=== PATIENT | male | born 1960 ===

== ENCOUNTER 2018-02-24 14:14 | Inpatient (IN) | payer MEDICAID ==
[2018-02-24] MEDS ORDERED: Ketoconazole 2% Crm 30 GM Tube TOP PRN (15:56)
[2018-02-24] MEDS ORDERED: Albuterol 8 GM Inhaler INH PRN (15:56)
[2018-02-24] MEDS ORDERED: Sodium Chloride 0.9% 10 ML Syringe FLUSH PRN (16:31)
--- NOTE | 2018-02-24 16:51 | PCM.HP ---
H&P History of Present Illness - General Date of Service: 02/24/18 Admit Problem/Dx: Admission Diagnosis/Problem Admission Diagnosis/Problem Osteomyelitis Source of Information: Patient, Old Records History Limitations: Reports: No Limitations - History of Present Illness Initial Comments - Free Text/Narative: Admitting today to [facility] for long-term IV antibiotics, as well as PT-OT. Complex history involving R hip, involving sepsis of the joint, hip replacement with revisions. Onset of Symptoms: Reports: Unknown/Unsure Duration of Symptoms: Reports: Other (approximately 1.5 years) Location: Reports: Lower Extremity, Right Quality: Reports: Same as Previous Episode (pain in right hip) Severity: Moderate (to moderately severe) Improves with: Reports: Medication, Rest Worsens with: Reports: Movement Context: Reports: Other (infection (sepsis, osteomyelitis)) Associated Symptoms: Reports: Weakness Right Hip Pain Score (Numeric/FACES): 10 - Related Data Allergies/Adverse Reactions: Allergies Allergy/AdvReac Type Severity Reaction Status Date / Time acetaminophen [From Tylenol] Allergy Cannot Verified 02/24/18 16:55 Remember Home Medications: Home Meds Albuterol [Ventolin HFA] 2 inhalation PO Q4HR PRN 02/24/18 [History] Aspirin 81 mg PO BID 02/24/18 [History] Calcium Carb/Mag Ox/Zinc Gluc [Fakylzi-Sumjduyrn-Dnmi] 1 tab PO DAILY 02/24/18 [ History] Cholecalciferol (Vitamin D3) [Vitamin D3] 1 tab PO DAILY 02/24/18 [History] Cyanocobalamin (Vitamin B-12) [Vitamin B-12] 1 tab PO DAILY 02/24/18 [History] Diazepam [Valium] 5 mg PO Q6H PRN 02/24/18 [History] Ertapenem [INVanz] 1 gm IVPUSH DAILY 02/24/18 [History] Folic Acid 1 mg PO DAILY 02/24/18 [History] Gabapentin [Neurontin] 200 mg PO TID 02/24/18 [History] Heparin Sodium,Porcine/PF [Heparin Lock Flush 100 Unit/ml] 3 ml FLUSH ASDIRECTED 02/24/18 [History] Heparin Sodium,Porcine/PF [Heparin Lock Flush 100 Unit/ml] 3 ml FLUSH ASDIRECTED PRN 02/24/18 [History] Ketoconazole [Nizoral 2% Crm] 1 applic TOP BID PRN 02/24/18 [History] Lactulose [Cephulac] 30 ml PO TID 02/24/18 [History] Multivitamin [Multi-Vitamin Daily] 1 tab PO DAILY 02/24/18 [History] Rifampin 300 mg PO BID 02/24/18 [History] Sennosides/Docusate Sodium [Senna-S] 2 tab PO BID 02/24/18 [History] Sertraline [Zoloft] 1 tab PO DAILY 02/24/18 [History] Sodium Chloride 0.9% [Saline Flush] 10 ml FLUSH ASDIRECTED 02/24/18 [History] Sodium Chloride 0.9% [Saline Flush] 10 ml FLUSH ASDIRECTED PRN 02/24/18 [History ] Tamsulosin [Flomax] 1 cap PO BEDTIME 02/24/18 [History] Thiamine [Vitamin B-1] 1 tab PO DAILY 02/24/18 [History] Triamcinolone Acetonide [Triamcinolone Acetonide 0.1% Crm] 1 applic TOP [id number] 02/24/18 [History] Vit A & D3 In Cod Liver Oil [Cod Liver Oil Softgel] 1 cap PO DAILY 02/24/18 [ History] amLODIPine [Norvasc] 2.5 mg PO DAILY 02/24/18 [History] oxyCODONE 10 mg PO Q4HR PRN 02/24/18 [History] Past Medical History HEENT History: Reports: Impaired Vision Cardiovascular History: Reports: Hypertension Respiratory History: Reports: Pneumonia, Recurrent Gastrointestinal History: Reports: Chronic Constipation Genitourinary History: Reports: Prostate Disorder Musculoskeletal History: Reports: Arthritis, Back Pain, Chronic, Fracture, Gout , Neck Pain, Chronic Hematologic History: Reports: Blood Transfusion(s) Dermatologic History: Reports: Eczema - Infectious Disease History Infectious Disease History: Reports: Chicken Pox, Hepatitis C, Measles, Mumps - Past Surgical History Head Surgeries/Procedures: Reports: None HEENT Surgical History: Reports: None Cardiovascular Surgical History: Reports: None Respiratory Surgical History: Reports: None GI Surgical History: Reports: None Male Surgical History: Reports: Circumcision Musculoskeletal Surgical History: Reports: Hip Replacement Dermatological Surgical History: Reports: None Social & Family History - Family History OBGYN: Reports: Dermatologic: Reports: Eczema Other Dermatologic Family History: Mother Oncologic: Reports: Breast, Lung Other Oncologic Family History: Mother - Tobacco Use Smoking Status *Q: Former Smoker Used Tobacco, but Quit: Yes Month/Year Tobacco Last Used: 08/2016 Second Hand Smoke Exposure: No - Caffeine Use Caffeine Use: Reports: Soda - Alcohol Use Days Per Week of Alcohol Use: 0 - Recreational Drug Use Recreational Drug Use: No H&P Review of Systems - Review of Systems: Review Of Systems: See Below General: Reports: Fatigue HEENT: Reports: No Symptoms Pulmonary: Reports: No Symptoms Cardiovascular: Reports: No Symptoms Gastrointestinal: Reports: No Symptoms Genitourinary: Reports: No Symptoms Musculoskeletal: Reports: Leg Pain (R hip) Skin: Reports: No Symptoms Psychiatric: Reports: No Symptoms Neurological: Reports: No Symptoms Hematologic/Lymphatic: Reports: No Symptoms Immunologic: Reports: No Symptoms Exam - Exam Exam: See Below - Vital Signs Vital Signs: Last Vital Signs Temp 98.1 F 02/24/18 15:13 Pulse 91 02/24/18 15:13 Resp 20 02/24/18 15:13 BP 140/77 02/24/18 15:13 Pulse Ox 95 02/24/18 15:13 Weight: 162 lb 3.2 oz - Exam General: Alert, Oriented, 4 HEENT: EOMI, Hearing Intact Neck: Supple, Trachea Midline, 2 Lungs: Clear to Auscultation, Normal Respiratory Effort Cardiovascular: Regular Rate, Regular Rhythm GI/Abdominal Exam: Normal Bowel Sounds, Soft, Non-Tender (Male) Exam: Deferred Rectal (Males) Exam: Deferred Back Exam: Normal Inspection Extremities: No Pedal Edema, Other (PICC line R antecubital) Skin: Warm, Dry, Wound (R hip, dressing intact) Neurological: Cranial Nerves Intact Neuro Extensive - Mental Status: Alert, Oriented x3, Normal Mood/Affect, Normal Cognition, Memory Intact Psychiatric: Alert, Normal Affect, Normal Mood - Problem List (1) Osteomyelitis hip SNOMED Code(s): 3374774 ICD Code: M86.9 - OSTEOMYELITIS, UNSPECIFIED Status: Acute Priority: High Current Visit: Yes (2) History of arthroplasty of right hip SNOMED Code(s): 929348941 ICD Code: Z96.641 - PRESENCE OF RIGHT ARTIFICIAL HIP JOINT Status: Chronic Priority: Medium Current Visit: Yes (3) Hypertension SNOMED Code(s): 09645978 ICD Code: I10 - ESSENTIAL (PRIMARY) HYPERTENSION Status: Chronic Priority : Medium Current Visit: Yes Qualifiers: Hypertension type: essential hypertension Qualified Code(s): I10 - Essential (primary) hypertension (4) Hepatitis C, chronic SNOMED Code(s): 522207009 ICD Code: B18.2 - CHRONIC VIRAL HEPATITIS C Status: Chronic Priority: Medium Current Visit: Yes Qualifiers: Hepatic coma status: without hepatic coma Qualified Code(s): B18.2 - Chronic viral hepatitis C (5) Depression SNOMED Code(s): 23704010 ICD Code: F32.9 - MAJOR DEPRESSIVE DISORDER, SINGLE EPISODE, UNSPECIFIED Status: Chronic Priority: Medium Current Visit: Yes Qualifiers: Depression Type: major depressive disorder Major depression recurrence: recurrent Major depression episode severity: moderate (6) BPH (benign prostatic hyperplasia) SNOMED Code(s): 206004082 ICD Code: N40.0 - BENIGN PROSTATIC HYPERPLASIA WITHOUT LOWER URINRY TRACT SYMP Status: Chronic Priority: Medium Current Visit: Yes Qualifiers: Lower urinary tract symptom presence: symptoms absent Qualified Code(s): N40.0 - Benign prostatic hyperplasia without lower urinary tract symptoms (7) Drug induced constipation SNOMED Code(s): 99906498 ICD Code: K59.03 - DRUG INDUCED CONSTIPATION Status: Chronic Priority: Medium Current Visit: Yes Problem Details: Secondary to narcotics Problem List Initiated/Reviewed/Updated: Yes Orders Last 24hrs: Active Orders 24 hr Category Date Time Status Patient Status [ADT] Routine ADT 02/24/18 16:32 Ordered Ambulate [RC] ASDIRECTED Care 02/24/18 16:31 Ordered Height and Weight [RC] PER UNIT ROUTINE Care 02/24/18 16:37 Ordered Intake and Output [RC] PRN Care 02/24/18 16:31 Ordered May Shower [RC] ASDIRECTED Care 02/24/18 16:31 Ordered Oxygen Therapy [RC] PRN Care 02/24/18 16:32 Ordered Up With Assistance [RC] ASDIRECTED Care 02/24/18 16:31 Ordered VTE/DVT Education [RC] PER UNIT ROUTINE Care 02/24/18 16:32 Ordered Vital Signs [RC] PER UNIT ROUTINE Care 02/24/18 16:32 Ordered Consult to Case Management [CONS] Routine Cons 02/24/18 16:31 Ordered OT Evaluation and Treatment [CONS] Routine Cons 02/24/18 16:31 Ordered PT Evaluation and Treatment [CONS] Routine Cons 02/24/18 16:31 Ordered Regular Diet [DIET] Diet 02/24/18 Dinner Ordered Albuterol [Ventolin HFA] Med 02/24/18 15:56 Ordered 2 inhalation INH Q4HR PRN Aspirin Med 02/24/18 18:00 Ordered 81 mg PO BID Calcium Carb/Mag Ox/Zinc Gluc [Fjfuxts-Frbfigagc-Sijq] Med 02/25/18 08:00 Ordered 1 tab PO DAILY Cholecalciferol (Vitamin D3) [Vitamin D3] Med 02/25/18 08:00 Ordered 1 tab PO DAILY Cyanocobalamin (Vitamin B12) [Vitamin B12] Med 02/25/18 08:00 Ordered 1 tab PO DAILY Diazepam [Valium] Med 02/24/18 15:56 Ordered 5 mg PO Q6H PRN Docusate Sodium/Sennosides [Senna Plus] Med 02/24/18 18:00 Ordered 2 tab PO BID Ertapenem [INVanz] Med 02/24/18 16:00 Ordered 1 gm IVPUSH DAILY Folic Acid Med 02/25/18 08:00 Ordered 1 mg PO DAILY Gabapentin [Neurontin] Med 02/24/18 18:00 Ordered 200 mg PO TID Heparin Sodium,Porcine/PF [Heparin Lock Flush 100 Unit/ Med 02/24/18 16:00 Ordered ml] 3 ml FLUSH ASDIRECTED Heparin Sodium,Porcine/PF [Heparin Lock Flush 100 Unit/ Med 02/24/18 15:56 Ordered ml] 3 ml FLUSH ASDIRECTED PRN Ketoconazole [Nizoral 2% Crm] Med 02/24/18 15:56 Ordered 1 applic TOP BID PRN Lactulose [Cephulac] Med 02/24/18 18:00 Ordered 20 gm PO TID Multivitamins [Tab-A-Alondra] Med 02/25/18 08:00 Ordered 1 tab PO DAILY Rifampin [Rifampin] Med 02/24/18 18:00 Ordered 300 mg PO BID Sertraline [Zoloft] Med 02/25/18 08:00 Ordered 1 tab PO DAILY Sodium Chloride 0.9% [Saline Flush] Med 02/24/18 16:00 Ordered 10 ml FLUSH ASDIRECTED Sodium Chloride 0.9% [Saline Flush] Med 02/24/18 15:56 Ordered 10 ml FLUSH ASDIRECTED PRN Sodium Chloride 0.9% [Saline Flush] Med 02/24/18 16:31 Ordered 10 ml FLUSH ASDIRECTED PRN Tamsulosin [Flomax] Med 02/24/18 20:00 Ordered 1 cap PO BEDTIME Thiamine [Vitamin B-1] Med 02/25/18 08:00 Ordered 1 tab PO DAILY amLODIPine [Norvasc] Med 02/25/18 08:00 Ordered 2.5 mg PO DAILY oxyCODONE Med 02/24/18 15:56 Ordered 10 mg PO Q4HR PRN Saline Lock Insert [OM.PC] Routine Oth 02/24/18 16:31 Ordered Resuscitation Status Routine Resus Stat 02/24/18 16:31 Ordered Medication Orders Albuterol (Ventolin Hfa) 0 gm INH Q4HR PRN PRN Reason: SHORTNESS OF BREATH Aspirin (Aspirin) 81 mg PO BID [facility] Cholecalciferol (Vitamin D3) 400 units PO DAILY [facility] Cyanocobalamin (Vitamin B12) 250 mcg PO DAILY [facility] Diazepam (Valium.) 5 mg PO Q6H PRN PRN Reason: MUSCLE SPASMS/ANXIETY Ertapenem (Invanz) 1 gm IVPUSH DAILY@1400 [facility] Folic Acid (Folic Acid) 1 mg PO DAILY [facility] Gabapentin (Neurontin) 200 mg PO TID [facility] Heparin Sodium (Porcine) (Heparin Lock Flush 100 Units/Ml) 300 units FLUSH ASDIRECTED PRN PRN Reason: KEEP LINE OPEN Heparin Sodium (Porcine) (Heparin Lock Flush 100 Units/Ml) 300 units FLUSH ASDIRECTED [facility] Ketoconazole (Nizoral 2% Crm) 0 gm TOP BID PRN PRN Reason: SEBORRHEA ON FACE Lactulose (Cephulac) 20 gm PO TID [facility] Multivitamins/Minerals/Vitamin C (Tab-A-Alondra) 1 tab PO DAILY [facility] Amlodipine [Norvasc] (2.5 Mg Tabs) 2.5 mg PO DAILY [facility] Non-Formulary Medication (Calcium Carb/Mag Ox/Zinc Gluc [Dtkvgmi-Ydannrybh-Dzia] ) 1 tab PO DAILY [facility] Oxycodone 10mg (Tablets) 1 each PO Q4H PRN PRN Reason: Pain Rifampin 300 Mg (Capsules) 300 mg PO BID [facility] Senna/Docusate Sodium (Senna Plus) 2 tab PO BID [facility] Sertraline HCl (Zoloft) 50 mg PO DAILY [facility] Sodium Chloride (Saline Flush) 10 ml FLUSH ASDIRECTED PRN PRN Reason: KEEP LINE OPEN Sodium Chloride (Saline Flush) 10 ml FLUSH ASDIRECTED [facility] Sodium Chloride (Saline Flush) 10 ml FLUSH ASDIRECTED PRN PRN Reason: Keep Vein Open Tamsulosin HCl (Flomax) 0.4 mg PO BEDTIME [facility] Thiamine HCl (Vitamin B-1) 100 mg PO DAILY [facility] Assessment/Plan Comment:: 02-24-18 Rusty Gandara PA-C Admitted to [facility] status from [place] after extended hospitalization for R hip osteomylelitis, sepsis, replacement of right hip and then revision of replacement. Will be receiving Invanz per PICC line. Will work with PT-OT. Plans to return home after antibiotic therapy complete, and PT-OT discharges from services.
--- NOTE | 2018-02-24 17:18 | PCM.HP ---
H&P History of Present Illness - General Admit Problem/Dx: Admission Diagnosis/Problem Admission Diagnosis/Problem Osteomyelitis Right Hip Pain Score (Numeric/FACES): 10 - Related Data Allergies/Adverse Reactions: Allergies Allergy/AdvReac Type Severity Reaction Status Date / Time acetaminophen [From Tylenol] Allergy Cannot Verified 02/24/18 16:55 Remember Home Medications: Home Meds Albuterol [Ventolin HFA] 2 inhalation PO Q4HR PRN 02/24/18 [History] Aspirin 81 mg PO BID 02/24/18 [History] Calcium Carb/Mag Ox/Zinc Gluc [Pmmqtzk-Aywkwwcna-Ksrp] 1 tab PO DAILY 02/24/18 [ History] Cholecalciferol (Vitamin D3) [Vitamin D3] 1 tab PO DAILY 02/24/18 [History] Cyanocobalamin (Vitamin B-12) [Vitamin B-12] 1 tab PO DAILY 02/24/18 [History] Diazepam [Valium] 5 mg PO Q6H PRN 02/24/18 [History] Ertapenem [INVanz] 1 gm IVPUSH DAILY 02/24/18 [History] Folic Acid 1 mg PO DAILY 02/24/18 [History] Gabapentin [Neurontin] 200 mg PO TID 02/24/18 [History] Heparin Sodium,Porcine/PF [Heparin Lock Flush 100 Unit/ml] 3 ml FLUSH ASDIRECTED 02/24/18 [History] Heparin Sodium,Porcine/PF [Heparin Lock Flush 100 Unit/ml] 3 ml FLUSH ASDIRECTED PRN 02/24/18 [History] Ketoconazole [Nizoral 2% Crm] 1 applic TOP BID PRN 02/24/18 [History] Lactulose [Cephulac] 30 ml PO TID 02/24/18 [History] Multivitamin [Multi-Vitamin Daily] 1 tab PO DAILY 02/24/18 [History] Rifampin 300 mg PO BID 02/24/18 [History] Sennosides/Docusate Sodium [Senna-S] 2 tab PO BID 02/24/18 [History] Sertraline [Zoloft] 1 tab PO DAILY 02/24/18 [History] Sodium Chloride 0.9% [Saline Flush] 10 ml FLUSH ASDIRECTED 02/24/18 [History] Sodium Chloride 0.9% [Saline Flush] 10 ml FLUSH ASDIRECTED PRN 02/24/18 [History ] Tamsulosin [Flomax] 1 cap PO BEDTIME 02/24/18 [History] Thiamine [Vitamin B-1] 1 tab PO DAILY 02/24/18 [History] Triamcinolone Acetonide [Triamcinolone Acetonide 0.1% Crm] 1 applic TOP [id number] 02/24/18 [History] Vit A & D3 In Cod Liver Oil [Cod Liver Oil Softgel] 1 cap PO DAILY 02/24/18 [ History] amLODIPine [Norvasc] 2.5 mg PO DAILY 02/24/18 [History] oxyCODONE 10 mg PO Q4HR PRN 02/24/18 [History] Past Medical History HEENT History: Reports: Impaired Vision Cardiovascular History: Reports: Hypertension Respiratory History: Reports: Pneumonia, Recurrent Gastrointestinal History: Reports: Chronic Constipation Genitourinary History: Reports: Prostate Disorder Musculoskeletal History: Reports: Arthritis, Back Pain, Chronic, Fracture, Gout , Neck Pain, Chronic Hematologic History: Reports: Blood Transfusion(s) Dermatologic History: Reports: Eczema - Infectious Disease History Infectious Disease History: Reports: Chicken Pox, Hepatitis C, Measles, Mumps - Past Surgical History Head Surgeries/Procedures: Reports: None HEENT Surgical History: Reports: None Cardiovascular Surgical History: Reports: None Respiratory Surgical History: Reports: None GI Surgical History: Reports: None Male Surgical History: Reports: Circumcision Musculoskeletal Surgical History: Reports: Hip Replacement Dermatological Surgical History: Reports: None Social & Family History - Family History OBGYN: Reports: Dermatologic: Reports: Eczema Other Dermatologic Family History: Mother Oncologic: Reports: Breast, Lung Other Oncologic Family History: Mother - Tobacco Use Smoking Status *Q: Former Smoker Used Tobacco, but Quit: Yes Month/Year Tobacco Last Used: 08/2016 Second Hand Smoke Exposure: No - Caffeine Use Caffeine Use: Reports: Soda - Alcohol Use Days Per Week of Alcohol Use: 0 - Recreational Drug Use Recreational Drug Use: No Exam - Exam Exam: See Below - Vital Signs Vital Signs: Last Vital Signs Temp 98.1 F 02/24/18 15:13 Pulse 91 02/24/18 15:13 Resp 20 02/24/18 15:13 BP 140/77 02/24/18 15:13 Pulse Ox 95 02/24/18 15:13 Weight: 162 lb 3.2 oz - Exam General: Alert, Oriented, 4 HEENT: EOMI, Hearing Intact, Mucosa Moist & [place] Neck: Supple, Trachea Midline Lungs: Clear to Auscultation, Normal Respiratory Effort Cardiovascular: Regular Rate, Regular Rhythm GI/Abdominal Exam: Normal Bowel Sounds, Soft, Non-Tender, No Distention (Male) Exam: Deferred Rectal (Males) Exam: Deferred Back Exam: Normal Inspection Extremities: No Pedal Edema, Other (PICC line R antecubital, dressing R hip) Skin: Warm, Dry Neurological: Cranial Nerves Intact Neuro Extensive - Mental Status: Alert, Oriented x3, Normal Mood/Affect, Normal Cognition, Memory Intact Psychiatric: Alert, Normal Affect, Normal Mood - Problem List (1) Osteomyelitis hip SNOMED Code(s): 6150631 ICD Code: M86.9 - OSTEOMYELITIS, UNSPECIFIED Status: Acute Priority: High Current Visit: Yes (2) History of arthroplasty of right hip SNOMED Code(s): 491049621 ICD Code: Z96.641 - PRESENCE OF RIGHT ARTIFICIAL HIP JOINT Status: Chronic Priority: Medium Current Visit: Yes (3) Hypertension SNOMED Code(s): 60321299 ICD Code: I10 - ESSENTIAL (PRIMARY) HYPERTENSION Status: Chronic Priority : Medium Current Visit: Yes Qualifiers: Hypertension type: essential hypertension Qualified Code(s): I10 - Essential (primary) hypertension (4) Hepatitis C, chronic SNOMED Code(s): 078985595 ICD Code: B18.2 - CHRONIC VIRAL HEPATITIS C Status: Chronic Priority: Medium Current Visit: Yes Qualifiers: Hepatic coma status: without hepatic coma Qualified Code(s): B18.2 - Chronic viral hepatitis C (5) Depression SNOMED Code(s): 90682560 ICD Code: F32.9 - MAJOR DEPRESSIVE DISORDER, SINGLE EPISODE, UNSPECIFIED Status: Chronic Priority: Medium Current Visit: Yes Qualifiers: Depression Type: major depressive disorder Major depression recurrence: recurrent Major depression episode severity: moderate (6) BPH (benign prostatic hyperplasia) SNOMED Code(s): 244340391 ICD Code: N40.0 - BENIGN PROSTATIC HYPERPLASIA WITHOUT LOWER URINRY TRACT SYMP Status: Chronic Priority: Medium Current Visit: Yes Qualifiers: Lower urinary tract symptom presence: symptoms absent Qualified Code(s): N40.0 - Benign prostatic hyperplasia without lower urinary tract symptoms (7) Drug induced constipation SNOMED Code(s): 45302092 ICD Code: K59.03 - DRUG INDUCED CONSTIPATION Status: Chronic Priority: Medium Current Visit: Yes Problem Details: Secondary to narcotics Problem List Initiated/Reviewed/Updated: Yes Orders Last 24hrs: Active Orders 24 hr Category Date Time Status Patient Status [ADT] Routine ADT 02/24/18 16:32 Ordered Ambulate [RC] ASDIRECTED Care 02/24/18 16:31 Ordered Height and Weight [RC] PER UNIT ROUTINE Care 02/24/18 16:37 Ordered Intake and Output [RC] PRN Care 02/24/18 16:31 Ordered May Shower [RC] ASDIRECTED Care 02/24/18 16:31 Ordered Oxygen Therapy [RC] PRN Care 02/24/18 16:32 Ordered Up With Assistance [RC] ASDIRECTED Care 02/24/18 16:31 Ordered VTE/DVT Education [RC] PER UNIT ROUTINE Care 02/24/18 16:32 Ordered Vital Signs [RC] PER UNIT ROUTINE Care 02/24/18 16:32 Ordered Consult to Case Management [CONS] Routine Cons 02/24/18 16:31 Ordered OT Evaluation and Treatment [CONS] Routine Cons 02/24/18 16:31 Ordered PT Evaluation and Treatment [CONS] Routine Cons 02/24/18 16:31 Ordered Regular Diet [DIET] Diet 02/24/18 Dinner Ordered Albuterol [Ventolin HFA] Med 02/24/18 15:56 Ordered 2 inhalation INH Q4HR PRN Aspirin Med 02/24/18 18:00 Ordered 81 mg PO BID Calcium Carb/Mag Ox/Zinc Gluc [Zjbfpsv-Fbdrrambf-Gpbd] Med 02/25/18 08:00 Ordered 1 tab PO DAILY Cholecalciferol (Vitamin D3) [Vitamin D3] Med 02/25/18 08:00 Ordered 1 tab PO DAILY Cyanocobalamin (Vitamin B12) [Vitamin B12] Med 02/25/18 08:00 Ordered 1 tab PO DAILY Diazepam [Valium] Med 02/24/18 15:56 Ordered 5 mg PO Q6H PRN Docusate Sodium/Sennosides [Senna Plus] Med 02/24/18 18:00 Ordered 2 tab PO BID Ertapenem [INVanz] Med 02/24/18 16:00 Ordered 1 gm IVPUSH DAILY Folic Acid Med 02/25/18 08:00 Ordered 1 mg PO DAILY Gabapentin [Neurontin] Med 02/24/18 18:00 Ordered 200 mg PO TID Heparin Sodium,Porcine/PF [Heparin Lock Flush 100 Unit/ Med 02/24/18 16:00 Ordered ml] 3 ml FLUSH ASDIRECTED Heparin Sodium,Porcine/PF [Heparin Lock Flush 100 Unit/ Med 02/24/18 15:56 Ordered ml] 3 ml FLUSH ASDIRECTED PRN Ketoconazole [Nizoral 2% Crm] Med 02/24/18 15:56 Ordered 1 applic TOP BID PRN Lactulose [Cephulac] Med 02/24/18 18:00 Ordered 20 gm PO TID Multivitamins [Tab-A-Alondra] Med 02/25/18 08:00 Ordered 1 tab PO DAILY Rifampin [Rifampin] Med 02/24/18 18:00 Ordered 300 mg PO BID Sertraline [Zoloft] Med 02/25/18 08:00 Ordered 1 tab PO DAILY Sodium Chloride 0.9% [Saline Flush] Med 02/24/18 16:00 Ordered 10 ml FLUSH ASDIRECTED Sodium Chloride 0.9% [Saline Flush] Med 02/24/18 15:56 Ordered 10 ml FLUSH ASDIRECTED PRN Sodium Chloride 0.9% [Saline Flush] Med 02/24/18 16:31 Ordered 10 ml FLUSH ASDIRECTED PRN Tamsulosin [Flomax] Med 02/24/18 20:00 Ordered 1 cap PO BEDTIME Thiamine [Vitamin B-1] Med 02/25/18 08:00 Ordered 1 tab PO DAILY amLODIPine [Norvasc] Med 02/25/18 08:00 Ordered 2.5 mg PO DAILY oxyCODONE Med 02/24/18 15:56 Ordered 10 mg PO Q4HR PRN Saline Lock Insert [OM.PC] Routine Oth 02/24/18 16:31 Ordered Resuscitation Status Routine Resus Stat 02/24/18 16:31 Ordered Medication Orders Albuterol (Ventolin Hfa) 0 gm INH Q4HR PRN PRN Reason: SHORTNESS OF BREATH Aspirin (Aspirin) 81 mg PO BID [facility] Cholecalciferol (Vitamin D3) 400 units PO DAILY [facility] Cyanocobalamin (Vitamin B12) 250 mcg PO DAILY [facility] Diazepam (Valium.) 5 mg PO Q6H PRN PRN Reason: MUSCLE SPASMS/ANXIETY Ertapenem (Invanz) 1 gm IVPUSH DAILY@1400 [facility] Folic Acid (Folic Acid) 1 mg PO DAILY [facility] Gabapentin (Neurontin) 200 mg PO TID [facility] Heparin Sodium (Porcine) (Heparin Lock Flush 100 Units/Ml) 300 units FLUSH ASDIRECTED PRN PRN Reason: KEEP LINE OPEN Heparin Sodium (Porcine) (Heparin Lock Flush 100 Units/Ml) 300 units FLUSH ASDIRECTED [facility] Ketoconazole (Nizoral 2% Crm) 0 gm TOP BID PRN PRN Reason: SEBORRHEA ON FACE Lactulose (Cephulac) 20 gm PO TID [facility] Multivitamins/Minerals/Vitamin C (Tab-A-Alondra) 1 tab PO DAILY [facility] Amlodipine [Norvasc] (2.5 Mg Tabs) 2.5 mg PO DAILY [facility] Non-Formulary Medication (Calcium Carb/Mag Ox/Zinc Gluc [Bmyevio-Thoxlksml-Jtdo] ) 1 tab PO DAILY [facility] Oxycodone 10mg (Tablets) 1 each PO Q4H PRN PRN Reason: Pain Rifampin 300 Mg (Capsules) 300 mg PO BID [facility] Senna/Docusate Sodium (Senna Plus) 2 tab PO BID [facility] Sertraline HCl (Zoloft) 50 mg PO DAILY [facility] Sodium Chloride (Saline Flush) 10 ml FLUSH ASDIRECTED PRN PRN Reason: KEEP LINE OPEN Sodium Chloride (Saline Flush) 10 ml FLUSH ASDIRECTED [facility] Sodium Chloride (Saline Flush) 10 ml FLUSH ASDIRECTED PRN PRN Reason: Keep Vein Open Tamsulosin HCl (Flomax) 0.4 mg PO BEDTIME [facility] Thiamine HCl (Vitamin B-1) 100 mg PO DAILY [facility] Assessment/Plan Comment:: 02-24-18 Rusty Gandara PA-C Admitting to [facility] status from [place] after extended hospitalization for R hip osteomylelitis, sepsis, replacement of right hip and then revision of replacement. Will be receiving Invanz. No change made in hospital meds. PT-OT consults ordered, as well as [facility] for discharge planning. Plan is discharge to home after IV antibiotic course completed, and PT-OT releases from services. [place]
[2018-02-24] MEDS: Aspirin 81 MG Tab.Chew PO SCH (18:26)
[2018-02-24] MEDS: Gabapentin 100 MG Cap PO SCH (18:26)
[2018-02-24] MEDS: OXYCODONE 10 MG PO PRN ×2 (18:28→22:28)
[2018-02-24] MEDS: Diazepam 5 MG Tab PO PRN (18:29)
[2018-02-24] MEDS: Ertapenem 1 GM Vial IVPUSH SCH (20:17)
[2018-02-24] MEDS: Sodium Chloride 0.9% 10 ML Syringe FLUSH SCH (20:20)
[2018-02-24] MEDS: Tamsulosin 0.4 MG Cap.ER PO SCH (20:25)
[2018-02-24] MEDS: Lactulose Soln 10 GM/15 ML 30 ML UD Cup PO SCH (21:25)
[2018-02-25] MEDS: AMLODIPINE 2.5 MG PO SCH (07:43)
[2018-02-25] MEDS: Aspirin 81 MG Tab.Chew PO SCH ×2 (07:44→17:19)
[2018-02-25] MEDS: Lactulose Soln 10 GM/15 ML 30 ML UD Cup PO SCH ×4 (07:44→17:19)
[2018-02-25] MEDS: Gabapentin 100 MG Cap PO SCH ×3 (07:45→17:51)
[2018-02-25] MEDS: Folic Acid 1 MG Tab PO SCH (07:45)
[2018-02-25] MEDS: Multivitamin Tab PO SCH (07:46)
[2018-02-25] MEDS: Sertraline 50 MG Tab PO SCH (07:47)
[2018-02-25] MEDS: Cholecalciferol (Vitamin D3) 400 Unit Tab PO SCH (07:48)
[2018-02-25] MEDS: Thiamine 100 MG Tab PO SCH (07:51)
[2018-02-25] MEDS: OXYCODONE 10 MG PO PRN ×4 (07:52→21:20)
[2018-02-25] MEDS: Cyanocobalamin (Vitamin B12) 250 MCG Tab PO SCH (08:03)
[2018-02-25] MEDS: Ertapenem 1 GM Vial IVPUSH SCH (13:10)
[2018-02-25] MEDS: Sodium Chloride 0.9% 10 ML Syringe FLUSH SCH (13:11)
[2018-02-25] MEDS: Tamsulosin 0.4 MG Cap.ER PO SCH (19:39)
[2018-02-25] MEDS: Diazepam 5 MG Tab PO PRN (19:40)
[2018-02-26] MEDS: OXYCODONE 10 MG PO PRN ×5 (02:06→22:18)
[2018-02-26] MEDS: Diazepam 5 MG Tab PO PRN ×3 (02:07→17:13)
[2018-02-26] MEDS: AMLODIPINE 2.5 MG PO SCH (07:20)
[2018-02-26] MEDS: Aspirin 81 MG Tab.Chew PO SCH ×2 (07:21→17:10)
[2018-02-26] MEDS: Gabapentin 100 MG Cap PO SCH ×3 (07:21→17:10)
[2018-02-26] MEDS: Folic Acid 1 MG Tab PO SCH (07:21)
[2018-02-26] MEDS: Multivitamin Tab PO SCH (07:22)
[2018-02-26] MEDS: Thiamine 100 MG Tab PO SCH (07:23)
[2018-02-26] MEDS: Cholecalciferol (Vitamin D3) 400 Unit Tab PO SCH (07:24)
[2018-02-26] MEDS: Sertraline 50 MG Tab PO SCH (07:25)
[2018-02-26] MEDS: Cyanocobalamin (Vitamin B12) 250 MCG Tab PO SCH (07:50)
[2018-02-26] MEDS: Lactulose Soln 10 GM/15 ML 30 ML UD Cup PO SCH ×3 (07:53→17:19)
[2018-02-26] MEDS: Ertapenem 1 GM Vial IVPUSH SCH (13:42)
[2018-02-26] MEDS: Sodium Chloride 0.9% 10 ML Syringe FLUSH SCH (13:43)
[2018-02-26] MEDS: Tamsulosin 0.4 MG Cap.ER PO SCH (19:47)
[2018-02-27] MEDS: Sertraline 50 MG Tab PO SCH ×2 (08:09→08:31)
[2018-02-27] MEDS: Folic Acid 1 MG Tab PO SCH (08:10)
[2018-02-27] MEDS: AMLODIPINE 2.5 MG PO SCH (08:10)
[2018-02-27] MEDS: Gabapentin 100 MG Cap PO SCH ×4 (08:10→17:36)
[2018-02-27] MEDS: Aspirin 81 MG Tab.Chew PO SCH ×2 (08:11→17:36)
[2018-02-27] MEDS: Thiamine 100 MG Tab PO SCH (08:12)
[2018-02-27] MEDS: Multivitamin Tab PO SCH (08:12)
[2018-02-27] MEDS: Cholecalciferol (Vitamin D3) 400 Unit Tab PO SCH (08:14)
[2018-02-27] MEDS: Lactulose Soln 10 GM/15 ML 30 ML UD Cup PO SCH ×3 (08:30→17:35)
[2018-02-27] MEDS: OXYCODONE 10 MG PO PRN ×2 (11:40→19:38)
[2018-02-27] MEDS: Ertapenem 1 GM Vial IVPUSH SCH (14:04)
[2018-02-27] MEDS: Sodium Chloride 0.9% 10 ML Syringe FLUSH SCH (14:04)
[2018-02-27] MEDS: Sodium Chloride 0.9% 10 ML Syringe FLUSH PRN (14:05)
[2018-02-27] MEDS: Cyanocobalamin (Vitamin B12) 250 MCG Tab PO SCH (17:36)
[2018-02-27] MEDS: Tamsulosin 0.4 MG Cap.ER PO SCH (19:37)
[2018-02-27] MEDS: Diazepam 5 MG Tab PO PRN (19:38)
[2018-02-28] MEDS: OXYCODONE 10 MG PO PRN ×4 (00:35→19:32)
[2018-02-28] MEDS: Diazepam 5 MG Tab PO PRN ×3 (01:42→21:05)
[2018-02-28] MEDS: Sodium Chloride 0.9% 10 ML Syringe FLUSH PRN ×4 (06:55→14:08)
[2018-02-28] MEDS: Aspirin 81 MG Tab.Chew PO SCH ×2 (07:43→17:13)
[2018-02-28] MEDS: Folic Acid 1 MG Tab PO SCH (07:43)
[2018-02-28] MEDS: AMLODIPINE 2.5 MG PO SCH (07:43)
[2018-02-28] MEDS: Multivitamin Tab PO SCH (07:44)
[2018-02-28] MEDS: Gabapentin 100 MG Cap PO SCH ×3 (07:44→17:14)
[2018-02-28] MEDS: Thiamine 100 MG Tab PO SCH (07:44)
[2018-02-28] MEDS: Cyanocobalamin (Vitamin B12) 250 MCG Tab PO SCH (07:45)
[2018-02-28] MEDS: Sertraline 50 MG Tab PO SCH (07:45)
[2018-02-28] MEDS: Cholecalciferol (Vitamin D3) 400 Unit Tab PO SCH (07:45)
[2018-02-28] MEDS: Lactulose Soln 10 GM/15 ML 30 ML UD Cup PO SCH ×3 (07:49→17:14)
[2018-02-28] MEDS: Ertapenem 1 GM Vial IVPUSH SCH (13:59)
[2018-02-28] MEDS: Tamsulosin 0.4 MG Cap.ER PO SCH (19:31)
[2018-03-01] MEDS: Diazepam 5 MG Tab PO PRN ×3 (04:14→21:17)
[2018-03-01] MEDS: OXYCODONE 10 MG PO PRN ×4 (04:14→19:29)
[2018-03-01] MEDS: AMLODIPINE 2.5 MG PO SCH (08:36)
[2018-03-01] MEDS: Folic Acid 1 MG Tab PO SCH (08:37)
[2018-03-01] MEDS: Sertraline 50 MG Tab PO SCH (08:37)
[2018-03-01] MEDS: Gabapentin 100 MG Cap PO SCH ×3 (08:37→17:35)
[2018-03-01] MEDS: Aspirin 81 MG Tab.Chew PO SCH ×2 (08:38→17:34)
[2018-03-01] MEDS: Lactulose Soln 10 GM/15 ML 30 ML UD Cup PO SCH ×3 (08:38→17:34)
[2018-03-01] MEDS: Multivitamin Tab PO SCH (08:40)
[2018-03-01] MEDS: Thiamine 100 MG Tab PO SCH (08:41)
[2018-03-01] MEDS: Cholecalciferol (Vitamin D3) 400 Unit Tab PO SCH (08:42)
[2018-03-01] MEDS: Cyanocobalamin (Vitamin B12) 250 MCG Tab PO SCH (08:42)
[2018-03-01] MEDS: Sodium Chloride 0.9% 10 ML Syringe FLUSH SCH ×3 (13:58→21:18)
[2018-03-01] MEDS: Ertapenem 1 GM Vial IVPUSH SCH (14:07)
[2018-03-01] MEDS: Tamsulosin 0.4 MG Cap.ER PO SCH (19:29)
[2018-03-02] MEDS: Diazepam 5 MG Tab PO PRN ×4 (00:56→20:43)
[2018-03-02] MEDS: OXYCODONE 10 MG PO PRN ×4 (00:56→19:29)
[2018-03-02] MEDS: Aspirin 81 MG Tab.Chew PO SCH ×2 (07:23→18:15)
[2018-03-02] MEDS: AMLODIPINE 2.5 MG PO SCH (07:23)
[2018-03-02] MEDS: Lactulose Soln 10 GM/15 ML 30 ML UD Cup PO SCH ×4 (07:24→18:15)
[2018-03-02] MEDS: Gabapentin 100 MG Cap PO SCH ×3 (07:24→18:16)
[2018-03-02] MEDS: Folic Acid 1 MG Tab PO SCH (07:24)
[2018-03-02] MEDS: Thiamine 100 MG Tab PO SCH (07:25)
[2018-03-02] MEDS: Multivitamin Tab PO SCH (07:25)
[2018-03-02] MEDS: Cyanocobalamin (Vitamin B12) 250 MCG Tab PO SCH (07:25)
[2018-03-02] MEDS: Sertraline 50 MG Tab PO SCH (07:26)
[2018-03-02] MEDS: Cholecalciferol (Vitamin D3) 400 Unit Tab PO SCH (07:26)
--- NOTE | 2018-03-02 11:05 | PCM.SN ---
- Free Text/Narrative Note: 03/02/18 Anatoly Moser MD Currently he is out of the building at a scheduled medical appointment in [place]. Nurse relays to me that Aman and his were extremely upset this morning. stating that they were told he would be getting antibiotics 3 times a day and in [place] he is only getting antibiotics one time a day. Also both of them are very upset regarding how his pain medication is ordered. They have told the nurse and our pharmacist is aware that he has stated that he usually takes two times up to 3-4 times the amount of oxycodone that is currently ordered. Nurse had explained that the orders we are following here are exactly what his doctors in [place] have instructed us to give him and I agree. He is still under the medical care and management of his [place] physicians. Hopefully Aman and his will discuss these concerns and questions at the appointment today. We await further instructions from his medical team in [place]. His labs as ordered have been faxed as requested to the infectious disease department.
[2018-03-02] MEDS: Ertapenem 1 GM Vial IVPUSH SCH (14:29)
[2018-03-02] MEDS: Sodium Chloride 0.9% 10 ML Syringe FLUSH SCH ×3 (14:29→19:31)
[2018-03-02] MEDS: Tamsulosin 0.4 MG Cap.ER PO SCH (19:28)
[2018-03-03] MEDS: Diazepam 5 MG Tab PO PRN ×3 (03:33→18:03)
[2018-03-03] MEDS: OXYCODONE 10 MG PO PRN ×3 (03:33→14:08)
[2018-03-03] MEDS: AMLODIPINE 2.5 MG PO SCH (07:42)
[2018-03-03] MEDS: Lactulose Soln 10 GM/15 ML 30 ML UD Cup PO SCH ×3 (07:43→18:01)
[2018-03-03] MEDS: Aspirin 81 MG Tab.Chew PO SCH ×2 (07:43→18:01)
[2018-03-03] MEDS: Gabapentin 100 MG Cap PO SCH ×3 (07:43→18:02)
[2018-03-03] MEDS: Folic Acid 1 MG Tab PO SCH (07:43)
[2018-03-03] MEDS: Thiamine 100 MG Tab PO SCH (07:44)
[2018-03-03] MEDS: Cyanocobalamin (Vitamin B12) 250 MCG Tab PO SCH (07:44)
[2018-03-03] MEDS: Multivitamin Tab PO SCH (07:44)
[2018-03-03] MEDS: Sertraline 50 MG Tab PO SCH (07:44)
[2018-03-03] MEDS: Cholecalciferol (Vitamin D3) 400 Unit Tab PO SCH (07:44)
[2018-03-03] MEDS: Sodium Chloride 0.9% 10 ML Syringe FLUSH PRN ×2 (13:02→13:22)
[2018-03-03] MEDS: Ertapenem 1 GM Vial IVPUSH SCH (13:03)
[2018-03-03] MEDS: Tamsulosin 0.4 MG Cap.ER PO SCH (19:17)
[2018-03-04] MEDS: Lactulose Soln 10 GM/15 ML 30 ML UD Cup PO SCH ×3 (07:32→17:09)
[2018-03-04] MEDS: Aspirin 81 MG Tab.Chew PO SCH ×2 (07:32→17:09)
[2018-03-04] MEDS: AMLODIPINE 2.5 MG PO SCH (07:32)
[2018-03-04] MEDS: Gabapentin 100 MG Cap PO SCH ×3 (07:33→17:09)
[2018-03-04] MEDS: Cyanocobalamin (Vitamin B12) 250 MCG Tab PO SCH (07:33)
[2018-03-04] MEDS: Multivitamin Tab PO SCH (07:33)
[2018-03-04] MEDS: Thiamine 100 MG Tab PO SCH (07:33)
[2018-03-04] MEDS: Folic Acid 1 MG Tab PO SCH (07:33)
[2018-03-04] MEDS: Cholecalciferol (Vitamin D3) 400 Unit Tab PO SCH (07:34)
[2018-03-04] MEDS: Sertraline 50 MG Tab PO SCH (07:34)
[2018-03-04] MEDS: Diazepam 5 MG Tab PO PRN ×2 (07:35→17:10)
[2018-03-04] MEDS: OXYCODONE 10 MG PO PRN ×3 (07:35→23:14)
[2018-03-04] MEDS: Sodium Chloride 0.9% 10 ML Syringe FLUSH PRN (12:59)
[2018-03-04] MEDS: Ertapenem 1 GM Vial IVPUSH SCH (13:00)
[2018-03-04] MEDS: Sodium Chloride 0.9% 10 ML Syringe FLUSH SCH (13:09)
[2018-03-04] MEDS: Tamsulosin 0.4 MG Cap.ER PO SCH (19:17)
[2018-03-05] MEDS: AMLODIPINE 2.5 MG PO SCH (07:16)
[2018-03-05] MEDS: Aspirin 81 MG Tab.Chew PO SCH ×2 (07:16→17:19)
[2018-03-05] MEDS: Lactulose Soln 10 GM/15 ML 30 ML UD Cup PO SCH ×3 (07:17→17:19)
[2018-03-05] MEDS: Folic Acid 1 MG Tab PO SCH (07:17)
[2018-03-05] MEDS: Gabapentin 100 MG Cap PO SCH ×3 (07:17→17:21)
[2018-03-05] MEDS: Multivitamin Tab PO SCH (07:18)
[2018-03-05] MEDS: Thiamine 100 MG Tab PO SCH (07:18)
[2018-03-05] MEDS: Cholecalciferol (Vitamin D3) 400 Unit Tab PO SCH (07:18)
[2018-03-05] MEDS: Cyanocobalamin (Vitamin B12) 250 MCG Tab PO SCH (07:18)
[2018-03-05] MEDS: Sertraline 50 MG Tab PO SCH (07:19)
[2018-03-05] MEDS: OXYCODONE 10 MG PO PRN ×4 (07:19→21:52)
[2018-03-05] MEDS: Diazepam 5 MG Tab PO PRN ×3 (07:20→19:31)
[2018-03-05] MEDS: Sodium Chloride 0.9% 10 ML Syringe FLUSH SCH ×2 (13:16→13:43)
[2018-03-05] MEDS: Ertapenem 1 GM Vial IVPUSH SCH (13:16)
[2018-03-05] MEDS: Tamsulosin 0.4 MG Cap.ER PO SCH (19:31)
[2018-03-06] MEDS: Diazepam 5 MG Tab PO PRN (04:39)
[2018-03-06] MEDS: OXYCODONE 10 MG PO PRN ×3 (04:40→19:43)
[2018-03-06] MEDS: Folic Acid 1 MG Tab PO SCH (08:22)
[2018-03-06] MEDS: Gabapentin 100 MG Cap PO SCH ×3 (08:22→17:31)
[2018-03-06] MEDS: AMLODIPINE 2.5 MG PO SCH (08:22)
[2018-03-06] MEDS: Sertraline 50 MG Tab PO SCH (08:23)
[2018-03-06] MEDS: Thiamine 100 MG Tab PO SCH (08:23)
[2018-03-06] MEDS: Cyanocobalamin (Vitamin B12) 250 MCG Tab PO SCH (08:24)
[2018-03-06] MEDS: Cholecalciferol (Vitamin D3) 400 Unit Tab PO SCH (08:24)
[2018-03-06] MEDS: Multivitamin Tab PO SCH (08:24)
[2018-03-06] MEDS: Aspirin 81 MG Tab.Chew PO SCH ×2 (08:25→17:30)
[2018-03-06] MEDS: Lactulose Soln 10 GM/15 ML 30 ML UD Cup PO SCH ×3 (08:26→17:30)
[2018-03-06] MEDS: Ertapenem 1 GM Vial IVPUSH SCH (13:51)
[2018-03-06] MEDS: Sodium Chloride 0.9% 10 ML Syringe FLUSH SCH (13:52)
[2018-03-06] MEDS: Sodium Chloride 0.9% 10 ML Syringe FLUSH PRN (13:53)
[2018-03-06] MEDS: Tamsulosin 0.4 MG Cap.ER PO SCH (19:42)
[2018-03-07] MEDS: Sodium Chloride 0.9% 10 ML Syringe FLUSH PRN ×2 (07:25→07:26)
[2018-03-07] MEDS: AMLODIPINE 2.5 MG PO SCH (07:43)
[2018-03-07] MEDS: Aspirin 81 MG Tab.Chew PO SCH ×2 (07:43→17:12)
[2018-03-07] MEDS: Lactulose Soln 10 GM/15 ML 30 ML UD Cup PO SCH ×4 (07:43→17:17)
[2018-03-07] MEDS: Folic Acid 1 MG Tab PO SCH (07:44)
[2018-03-07] MEDS: Gabapentin 100 MG Cap PO SCH ×3 (07:44→17:13)
[2018-03-07] MEDS: Multivitamin Tab PO SCH (07:44)
[2018-03-07] MEDS: Cyanocobalamin (Vitamin B12) 250 MCG Tab PO SCH (07:46)
[2018-03-07] MEDS: Thiamine 100 MG Tab PO SCH (07:46)
[2018-03-07] MEDS: Sertraline 50 MG Tab PO SCH (07:47)
[2018-03-07] MEDS: OXYCODONE 10 MG PO PRN ×3 (07:47→19:16)
[2018-03-07] MEDS: Cholecalciferol (Vitamin D3) 400 Unit Tab PO SCH (07:47)
[2018-03-07] MEDS: Diazepam 5 MG Tab PO PRN ×2 (07:48→17:14)
[2018-03-07] MEDS: Ertapenem 1 GM Vial IVPUSH SCH (13:37)
[2018-03-07] MEDS: Sodium Chloride 0.9% 10 ML Syringe FLUSH SCH (13:38)
[2018-03-07] MEDS: Tamsulosin 0.4 MG Cap.ER PO SCH (19:16)
[2018-03-08] MEDS: Diazepam 5 MG Tab PO PRN ×2 (02:07→11:48)
[2018-03-08] MEDS: OXYCODONE 10 MG PO PRN ×4 (02:07→17:22)
[2018-03-08] MEDS: Lactulose Soln 10 GM/15 ML 30 ML UD Cup PO SCH ×3 (07:33→17:19)
[2018-03-08] MEDS: Gabapentin 100 MG Cap PO SCH ×3 (07:33→17:19)
[2018-03-08] MEDS: AMLODIPINE 2.5 MG PO SCH (07:33)
[2018-03-08] MEDS: Folic Acid 1 MG Tab PO SCH (07:33)
[2018-03-08] MEDS: Aspirin 81 MG Tab.Chew PO SCH ×2 (07:33→17:18)
[2018-03-08] MEDS: Cyanocobalamin (Vitamin B12) 250 MCG Tab PO SCH (07:34)
[2018-03-08] MEDS: Multivitamin Tab PO SCH (07:34)
[2018-03-08] MEDS: Cholecalciferol (Vitamin D3) 400 Unit Tab PO SCH (07:34)
[2018-03-08] MEDS: Thiamine 100 MG Tab PO SCH (07:34)
[2018-03-08] MEDS: Sertraline 50 MG Tab PO SCH (07:35)
[2018-03-08] MEDS: Sodium Chloride 0.9% 10 ML Syringe FLUSH PRN ×2 (13:01→13:16)
[2018-03-08] MEDS: Ertapenem 1 GM Vial IVPUSH SCH (13:02)
[2018-03-08] MEDS: Tamsulosin 0.4 MG Cap.ER PO SCH (19:14)
[2018-03-09] MEDS: AMLODIPINE 2.5 MG PO SCH (08:01)
[2018-03-09] MEDS: Folic Acid 1 MG Tab PO SCH (08:02)
[2018-03-09] MEDS: Aspirin 81 MG Tab.Chew PO SCH ×2 (08:02→18:17)
[2018-03-09] MEDS: Gabapentin 100 MG Cap PO SCH ×3 (08:02→18:17)
[2018-03-09] MEDS: Multivitamin Tab PO SCH (08:03)
[2018-03-09] MEDS: Cyanocobalamin (Vitamin B12) 250 MCG Tab PO SCH (08:03)
[2018-03-09] MEDS: Thiamine 100 MG Tab PO SCH (08:03)
[2018-03-09] MEDS: Sertraline 50 MG Tab PO SCH (08:04)
[2018-03-09] MEDS: Cholecalciferol (Vitamin D3) 400 Unit Tab PO SCH (08:04)
[2018-03-09] MEDS: Lactulose Soln 10 GM/15 ML 30 ML UD Cup PO SCH ×4 (08:07→18:18)
[2018-03-09] MEDS: Diazepam 5 MG Tab PO PRN ×3 (08:10→21:41)
[2018-03-09] MEDS: OXYCODONE 10 MG PO PRN ×3 (08:10→20:05)
[2018-03-09] MEDS: Ertapenem 1 GM Vial IVPUSH SCH (14:44)
[2018-03-09] MEDS: Sodium Chloride 0.9% 10 ML Syringe FLUSH SCH ×3 (14:45→21:42)
[2018-03-09] MEDS: Tamsulosin 0.4 MG Cap.ER PO SCH (20:03)
[2018-03-10] MEDS: AMLODIPINE 2.5 MG PO SCH (08:02)
[2018-03-10] MEDS: Aspirin 81 MG Tab.Chew PO SCH ×2 (08:03→17:21)
[2018-03-10] MEDS: Folic Acid 1 MG Tab PO SCH (08:04)
[2018-03-10] MEDS: Lactulose Soln 10 GM/15 ML 30 ML UD Cup PO SCH ×4 (08:04→17:22)
[2018-03-10] MEDS: Gabapentin 100 MG Cap PO SCH ×3 (08:04→17:22)
[2018-03-10] MEDS: Thiamine 100 MG Tab PO SCH (08:05)
[2018-03-10] MEDS: Multivitamin Tab PO SCH (08:05)
[2018-03-10] MEDS: Cyanocobalamin (Vitamin B12) 250 MCG Tab PO SCH (08:05)
[2018-03-10] MEDS: Sertraline 50 MG Tab PO SCH (08:06)
[2018-03-10] MEDS: Cholecalciferol (Vitamin D3) 400 Unit Tab PO SCH (08:06)
[2018-03-10] MEDS: Diazepam 5 MG Tab PO PRN ×2 (08:07→17:25)
[2018-03-10] MEDS: OXYCODONE 10 MG PO PRN ×2 (08:07→17:25)
[2018-03-10] MEDS: Sodium Chloride 0.9% 10 ML Syringe FLUSH SCH ×2 (14:07→20:02)
[2018-03-10] MEDS: Ertapenem 1 GM Vial IVPUSH SCH (14:07)
[2018-03-10] MEDS: Tamsulosin 0.4 MG Cap.ER PO SCH (20:02)
[2018-03-11] MEDS: OXYCODONE 10 MG PO PRN ×3 (02:20→15:04)
[2018-03-11] MEDS: Diazepam 5 MG Tab PO PRN ×3 (02:21→15:04)
[2018-03-11] MEDS: AMLODIPINE 2.5 MG PO SCH (08:17)
[2018-03-11] MEDS: Folic Acid 1 MG Tab PO SCH (08:17)
[2018-03-11] MEDS: Lactulose Soln 10 GM/15 ML 30 ML UD Cup PO SCH ×3 (08:18→17:44)
[2018-03-11] MEDS: Aspirin 81 MG Tab.Chew PO SCH ×2 (08:18→17:43)
[2018-03-11] MEDS: Gabapentin 100 MG Cap PO SCH ×3 (08:18→17:44)
[2018-03-11] MEDS: Thiamine 100 MG Tab PO SCH (08:19)
[2018-03-11] MEDS: Multivitamin Tab PO SCH (08:19)
[2018-03-11] MEDS: Cholecalciferol (Vitamin D3) 400 Unit Tab PO SCH (08:20)
[2018-03-11] MEDS: Cyanocobalamin (Vitamin B12) 250 MCG Tab PO SCH (08:20)
[2018-03-11] MEDS: Sertraline 50 MG Tab PO SCH (08:20)
[2018-03-11] MEDS: Sodium Chloride 0.9% 10 ML Syringe FLUSH SCH ×2 (13:51→13:52)
[2018-03-11] MEDS: Ertapenem 1 GM Vial IVPUSH SCH (13:52)
[2018-03-11] MEDS: Tamsulosin 0.4 MG Cap.ER PO SCH (19:23)
[2018-03-12] MEDS: AMLODIPINE 2.5 MG PO SCH (08:10)
[2018-03-12] MEDS: Aspirin 81 MG Tab.Chew PO SCH ×2 (08:11→17:33)
[2018-03-12] MEDS: Lactulose Soln 10 GM/15 ML 30 ML UD Cup PO SCH ×3 (08:12→17:33)
[2018-03-12] MEDS: Gabapentin 100 MG Cap PO SCH ×3 (08:12→17:34)
[2018-03-12] MEDS: Folic Acid 1 MG Tab PO SCH (08:12)
[2018-03-12] MEDS: Cholecalciferol (Vitamin D3) 400 Unit Tab PO SCH (08:13)
[2018-03-12] MEDS: Thiamine 100 MG Tab PO SCH (08:13)
[2018-03-12] MEDS: Cyanocobalamin (Vitamin B12) 250 MCG Tab PO SCH (08:13)
[2018-03-12] MEDS: Multivitamin Tab PO SCH (08:13)
[2018-03-12] MEDS: Sertraline 50 MG Tab PO SCH (08:14)
[2018-03-12] MEDS: OXYCODONE 10 MG PO PRN ×2 (08:15→14:07)
[2018-03-12] MEDS: Diazepam 5 MG Tab PO PRN ×2 (08:15→14:15)
[2018-03-12] MEDS: Ertapenem 1 GM Vial IVPUSH SCH (13:49)
[2018-03-12] MEDS: Sodium Chloride 0.9% 10 ML Syringe FLUSH SCH (13:49)
[2018-03-12] MEDS: Tamsulosin 0.4 MG Cap.ER PO SCH (19:16)
[2018-03-13] MEDS: Aspirin 81 MG Tab.Chew PO SCH ×2 (08:31→18:07)
[2018-03-13] MEDS: AMLODIPINE 2.5 MG PO SCH (08:31)
[2018-03-13] MEDS: Folic Acid 1 MG Tab PO SCH (08:31)
[2018-03-13] MEDS: Gabapentin 100 MG Cap PO SCH ×3 (08:32→18:10)
[2018-03-13] MEDS: Multivitamin Tab PO SCH (08:32)
[2018-03-13] MEDS: Lactulose Soln 10 GM/15 ML 30 ML UD Cup PO SCH ×3 (08:32→18:09)
[2018-03-13] MEDS: Thiamine 100 MG Tab PO SCH (08:33)
[2018-03-13] MEDS: Sertraline 50 MG Tab PO SCH (08:33)
[2018-03-13] MEDS: Cholecalciferol (Vitamin D3) 400 Unit Tab PO SCH (08:33)
[2018-03-13] MEDS: Cyanocobalamin (Vitamin B12) 250 MCG Tab PO SCH (08:33)
[2018-03-13] MEDS: Diazepam 5 MG Tab PO PRN (08:34)
[2018-03-13] MEDS: OXYCODONE 10 MG PO PRN (08:35)
[2018-03-13] MEDS: CALCIUM PO SCH ×7 (11:13→11:31)
[2018-03-13] MEDS: MAGNESIUM PO SCH ×7 (11:13→11:31)
[2018-03-13] MEDS: ZINC PO SCH ×7 (11:13→11:31)
[2018-03-13] MEDS: Sodium Chloride 0.9% 10 ML Syringe FLUSH SCH (14:32)
[2018-03-13] MEDS: Ertapenem 1 GM Vial IVPUSH SCH (14:32)
[2018-03-13] MEDS: Tamsulosin 0.4 MG Cap.ER PO SCH (19:11)
[2018-03-14] MEDS: CALCIUM PO SCH ×4 (06:57→08:52)
[2018-03-14] MEDS: ZINC PO SCH ×4 (06:57→08:52)
[2018-03-14] MEDS: MAGNESIUM PO SCH ×4 (06:57→08:52)
[2018-03-14] MEDS: Sodium Chloride 0.9% 10 ML Syringe FLUSH PRN ×2 (06:58→11:59)
[2018-03-14] MEDS: AMLODIPINE 2.5 MG PO SCH (08:29)
[2018-03-14] MEDS: Aspirin 81 MG Tab.Chew PO SCH ×2 (08:29→17:17)
[2018-03-14] MEDS: Folic Acid 1 MG Tab PO SCH (08:31)
[2018-03-14] MEDS: Lactulose Soln 10 GM/15 ML 30 ML UD Cup PO SCH ×4 (08:31→17:17)
[2018-03-14] MEDS: Gabapentin 100 MG Cap PO SCH ×3 (08:31→17:18)
[2018-03-14] MEDS: Cyanocobalamin (Vitamin B12) 250 MCG Tab PO SCH (08:32)
[2018-03-14] MEDS: Sertraline 50 MG Tab PO SCH (08:32)
[2018-03-14] MEDS: Thiamine 100 MG Tab PO SCH (08:32)
[2018-03-14] MEDS: Cholecalciferol (Vitamin D3) 400 Unit Tab PO SCH (08:32)
[2018-03-14] MEDS: Multivitamin Tab PO SCH (08:32)
[2018-03-14] MEDS: Diazepam 5 MG Tab PO PRN ×2 (08:33→22:00)
[2018-03-14] MEDS: OXYCODONE 10 MG PO PRN ×3 (08:34→22:00)
[2018-03-14] MEDS: Sodium Chloride 0.9% 10 ML Syringe FLUSH SCH ×2 (13:11→13:32)
[2018-03-14] MEDS: Ertapenem 1 GM Vial IVPUSH SCH (13:13)
[2018-03-14] MEDS: Tamsulosin 0.4 MG Cap.ER PO SCH (19:48)
[2018-03-15] MEDS: AMLODIPINE 2.5 MG PO SCH (08:03)
[2018-03-15] MEDS: MAGNESIUM PO SCH (08:04)
[2018-03-15] MEDS: CALCIUM PO SCH (08:04)
[2018-03-15] MEDS: Aspirin 81 MG Tab.Chew PO SCH ×2 (08:04→17:30)
[2018-03-15] MEDS: Lactulose Soln 10 GM/15 ML 30 ML UD Cup PO SCH ×3 (08:04→17:30)
[2018-03-15] MEDS: ZINC PO SCH (08:04)
[2018-03-15] MEDS: Folic Acid 1 MG Tab PO SCH (08:05)
[2018-03-15] MEDS: Multivitamin Tab PO SCH (08:05)
[2018-03-15] MEDS: Gabapentin 100 MG Cap PO SCH ×3 (08:05→17:31)
[2018-03-15] MEDS: Cyanocobalamin (Vitamin B12) 250 MCG Tab PO SCH (08:06)
[2018-03-15] MEDS: Sertraline 50 MG Tab PO SCH (08:06)
[2018-03-15] MEDS: Cholecalciferol (Vitamin D3) 400 Unit Tab PO SCH (08:06)
[2018-03-15] MEDS: Thiamine 100 MG Tab PO SCH (08:06)
[2018-03-15] MEDS: Diazepam 5 MG Tab PO PRN ×2 (08:07→20:16)
[2018-03-15] MEDS: OXYCODONE 10 MG PO PRN ×3 (08:07→20:16)
[2018-03-15] MEDS: Sodium Chloride 0.9% 10 ML Syringe FLUSH SCH ×3 (13:05→20:04)
[2018-03-15] MEDS: Ertapenem 1 GM Vial IVPUSH SCH (13:10)
--- NOTE | 2018-03-15 14:26 | PCM.PN ---
- General Info Date of Service: 03/15/18 Admission Dx/Problem (Free Text): Osteomyelitis Functional Status: Reports: Pain Controlled, Tolerating Diet, Ambulating (with walker) - Review of Systems General: Reports: Weakness (but getting stronger since admit) HEENT: Reports: No Symptoms Pulmonary: Reports: No Symptoms Cardiovascular: Reports: No Symptoms Gastrointestinal: Reports: Diarrhea (from Lactulose, sometimes refuses Lactulose ) Genitourinary: Reports: No Symptoms Musculoskeletal: Reports: Leg Pain (R hip) Skin: Reports: No Symptoms Neurological: Reports: No Symptoms Psychiatric: Reports: No Symptoms - Patient Data Vitals - Most Recent: Last Vital Signs Temp 98.4 F 03/10/18 08:00 Pulse 82 03/10/18 08:00 Resp 20 03/10/18 08:00 BP 120/68 03/10/18 08:00 Pulse Ox 94 L 03/10/18 08:00 Weight - Most Recent: 158 lb 14.4 oz Med Orders - Current: Current Medications Albuterol (Ventolin Hfa) 0 gm INH Q4HR PRN PRN Reason: SHORTNESS OF BREATH Aspirin (Aspirin) 81 mg PO BID [facility] Last Admin: 03/15/18 08:04 Dose: 81 mg Cholecalciferol (Vitamin D3) 400 units PO DAILY [facility] Last Admin: 03/15/18 08:06 Dose: 400 units Cyanocobalamin (Vitamin B12) 250 mcg PO DAILY [facility] Last Admin: 03/15/18 08:06 Dose: 250 mcg Diazepam (Valium.) 5 mg PO Q6H PRN PRN Reason: MUSCLE SPASMS/ANXIETY Last Admin: 03/15/18 08:07 Dose: 5 mg Ertapenem (Invanz) 1 gm IVPUSH DAILY@1400 [facility] Last Admin: 03/15/18 13:10 Dose: 1 gm Folic Acid (Folic Acid) 1 mg PO DAILY [facility] Last Admin: 03/15/18 08:05 Dose: 1 mg Gabapentin (Neurontin) 200 mg PO TID [facility] Last Admin: 03/15/18 11:56 Dose: 200 mg Heparin Sodium (Porcine) (Heparin Lock Flush 100 Units/Ml) 300 units FLUSH ASDIRECTED PRN PRN Reason: KEEP LINE OPEN Last Admin: 03/14/18 11:59 Dose: 300 units Heparin Sodium (Porcine) (Heparin Lock Flush 100 Units/Ml) 300 units FLUSH ASDIRECTED [facility] Last Admin: 03/15/18 13:20 Dose: 300 units Ketoconazole (Nizoral 2% Crm) 0 gm TOP BID PRN PRN Reason: SEBORRHEA ON FACE Lactulose (Cephulac) 20 gm PO TID [facility] Last Admin: 03/15/18 11:57 Dose: Not Given Multivitamins/Minerals/Vitamin C (Tab-A-Alondra) 1 tab PO DAILY [facility] Last Admin: 03/15/18 08:05 Dose: 1 tab Amlodipine [Norvasc] (2.5 Mg Tabs) 2.5 mg PO DAILY [facility] Last Admin: 03/15/18 08:03 Dose: 2.5 mg Oxycodone 10mg (Tablets) 1 each PO Q4H PRN PRN Reason: Pain Last Admin: 03/15/18 13:27 Dose: 1 each Rifampin 300 Mg (Capsules) 300 mg PO BID [facility] Last Admin: 03/15/18 08:05 Dose: 300 mg Calcium/Magnesium/ (Zinc Tab Own Med) 0 tab PO DAILY [facility] Last Admin: 03/15/18 08:04 Dose: 1 tab Senna/Docusate Sodium (Senna Plus) 2 tab PO BID PRN PRN Reason: Constipation Sertraline HCl (Zoloft) 50 mg PO DAILY [facility] Last Admin: 03/15/18 08:06 Dose: 50 mg Sodium Chloride (Saline Flush) 10 ml FLUSH ASDIRECTED PRN PRN Reason: KEEP LINE OPEN Last Admin: 03/14/18 11:59 Dose: 10 ml Sodium Chloride (Saline Flush) 10 ml FLUSH ASDIRECTED [facility] Last Admin: 03/15/18 13:20 Dose: 10 ml Sodium Chloride (Saline Flush) 10 ml FLUSH ASDIRECTED PRN PRN Reason: Keep Vein Open Tamsulosin HCl (Flomax) 0.4 mg PO BEDTIME [facility] Last Admin: 03/14/18 19:48 Dose: 0.4 mg Thiamine HCl (Vitamin B-1) 100 mg PO DAILY [facility] Last Admin: 03/15/18 08:06 Dose: 100 mg Discontinued Medications Calcium/Magnesium/ (Zinc Tab Own Med) 0 tab PO DAILY [facility] Last Admin: 03/14/18 08:52 Dose: Not Given Senna/Docusate Sodium (Senna Plus) 2 tab PO BID [facility] Last Admin: 03/01/18 08:40 Dose: 2 tab - Exam Quality Assessment: Central Line/PICC (R antecubital) General: Alert, Oriented HEENT: Pupils Reactive, Mucous Membr. Moist/[place] Neck: Supple Lungs: Clear to Auscultation, Normal Respiratory Effort Cardiovascular: Regular Rate, Regular Rhythm GI/Abdominal Exam: Normal Bowel Sounds, Soft, Non-Tender (Male) Exam: Deferred Back Exam: Normal Inspection Extremities: No Pedal Edema Skin: Warm, Dry, Intact Wound/Incisions: Healing Well (R hip) Neurological: No New Focal Deficit Psy/Mental Status: Alert, Normal Affect, Normal Mood - Problem List & Annotations (1) Osteomyelitis hip SNOMED Code(s): 6929776 Code(s): M86.9 - OSTEOMYELITIS, UNSPECIFIED Status: Acute Priority: High Current Visit: Yes (2) History of arthroplasty of right hip SNOMED Code(s): 723228179 Code(s): Z96.641 - PRESENCE OF RIGHT ARTIFICIAL HIP JOINT Status: Chronic Priority: Medium Current Visit: Yes (3) Hypertension SNOMED Code(s): 50580885 Code(s): I10 - ESSENTIAL (PRIMARY) HYPERTENSION Status: Chronic Priority : Medium Current Visit: Yes Qualifiers: Hypertension type: essential hypertension Qualified Code(s): I10 - Essential (primary) hypertension (4) Hepatitis C, chronic SNOMED Code(s): 825998817 Code(s): B18.2 - CHRONIC VIRAL HEPATITIS C Status: Chronic Priority: Medium Current Visit: Yes Qualifiers: Hepatic coma status: without hepatic coma Qualified Code(s): B18.2 - Chronic viral hepatitis C (5) Depression SNOMED Code(s): 33761268 Code(s): F32.9 - MAJOR DEPRESSIVE DISORDER, SINGLE EPISODE, UNSPECIFIED Status: Chronic Priority: Medium Current Visit: Yes Qualifiers: Depression Type: major depressive disorder Major depression recurrence: recurrent Major depression episode severity: moderate (6) BPH (benign prostatic hyperplasia) SNOMED Code(s): 229197247 Code(s): N40.0 - BENIGN PROSTATIC HYPERPLASIA WITHOUT LOWER URINRY TRACT SYMP Status: Chronic Priority: Medium Current Visit: Yes Qualifiers: Lower urinary tract symptom presence: symptoms absent Qualified Code(s): N40.0 - Benign prostatic hyperplasia without lower urinary tract symptoms (7) Drug induced constipation SNOMED Code(s): 98694295 Code(s): K59.03 - DRUG INDUCED CONSTIPATION Status: Chronic Priority: Medium Current Visit: Yes Annotation/Comment:: Secondary to narcotics - Problem List Review Problem List Initiated/Reviewed/Updated: Yes - My Orders Last 24 Hours: My Active Orders 03/15/18 14:16 Communication Order [RC] ROUTINE 03/20/18 05:11 AMMONIA VENOUS [CHEM] Routine C-REACTIVE PROTEIN [CHEM] Routine CBC WITH AUTO DIFF [HEME] Routine COMPREHENSIVE METABOLIC PN,CMP [CHEM] Routine - Plan Plan:: 03-15-18 Rusty Gandara PA-C Patient has been receiving IV Invanz daily for Osteomyelitis R hip. He has worked with PT-OT. He has improved and is ambulating outside with a walker, and very much desires to return home. Both he and his have administered IV medication at home previously, and do feel comfortable doing this again. After examination and discussion, will discharge to home March 20 to continue once-daily IV infusions of Invanz through April 05. Will draw one more set of labs that morning. Will have Home Health involvement. Did discuss with Evelyn Redding as well, she says we already have the entire supply of antibiotic medicine here to send home with patient.
[2018-03-15] MEDS: Tamsulosin 0.4 MG Cap.ER PO SCH (20:03)
[2018-03-16] MEDS: Aspirin 81 MG Tab.Chew PO SCH ×2 (07:43→19:40)
[2018-03-16] MEDS: AMLODIPINE 2.5 MG PO SCH (07:43)
[2018-03-16] MEDS: ZINC PO SCH (07:43)
[2018-03-16] MEDS: CALCIUM PO SCH (07:43)
[2018-03-16] MEDS: MAGNESIUM PO SCH (07:43)
[2018-03-16] MEDS: Lactulose Soln 10 GM/15 ML 30 ML UD Cup PO SCH ×3 (07:43→19:41)
[2018-03-16] MEDS: Multivitamin Tab PO SCH (07:44)
[2018-03-16] MEDS: Folic Acid 1 MG Tab PO SCH (07:44)
[2018-03-16] MEDS: Gabapentin 100 MG Cap PO SCH ×3 (07:44→19:40)
[2018-03-16] MEDS: Sertraline 50 MG Tab PO SCH (07:45)
[2018-03-16] MEDS: Thiamine 100 MG Tab PO SCH (07:45)
[2018-03-16] MEDS: Cholecalciferol (Vitamin D3) 400 Unit Tab PO SCH (07:45)
[2018-03-16] MEDS: Cyanocobalamin (Vitamin B12) 250 MCG Tab PO SCH (07:45)
[2018-03-16] MEDS: OXYCODONE 10 MG PO PRN ×3 (07:46→22:31)
[2018-03-16] MEDS: Diazepam 5 MG Tab PO PRN ×2 (07:46→22:31)
[2018-03-16] MEDS: Sodium Chloride 0.9% 10 ML Syringe FLUSH SCH ×2 (13:58→14:26)
[2018-03-16] MEDS: Ertapenem 1 GM Vial IVPUSH SCH (13:59)
[2018-03-16] MEDS: Tamsulosin 0.4 MG Cap.ER PO SCH (19:41)
[2018-03-17] MEDS: AMLODIPINE 2.5 MG PO SCH (08:32)
[2018-03-17] MEDS: Aspirin 81 MG Tab.Chew PO SCH ×2 (08:33→17:00)
[2018-03-17] MEDS: ZINC PO SCH (08:33)
[2018-03-17] MEDS: CALCIUM PO SCH (08:33)
[2018-03-17] MEDS: MAGNESIUM PO SCH (08:33)
[2018-03-17] MEDS: Gabapentin 100 MG Cap PO SCH ×3 (08:34→17:02)
[2018-03-17] MEDS: Folic Acid 1 MG Tab PO SCH (08:34)
[2018-03-17] MEDS: Lactulose Soln 10 GM/15 ML 30 ML UD Cup PO SCH ×3 (08:34→17:01)
[2018-03-17] MEDS: Multivitamin Tab PO SCH (08:34)
[2018-03-17] MEDS: Cyanocobalamin (Vitamin B12) 250 MCG Tab PO SCH (08:35)
[2018-03-17] MEDS: Thiamine 100 MG Tab PO SCH (08:35)
[2018-03-17] MEDS: Sertraline 50 MG Tab PO SCH (08:36)
[2018-03-17] MEDS: Cholecalciferol (Vitamin D3) 400 Unit Tab PO SCH (08:36)
[2018-03-17] MEDS: OXYCODONE 10 MG PO PRN ×2 (08:37→17:03)
[2018-03-17] MEDS: Diazepam 5 MG Tab PO PRN ×2 (08:37→17:03)
[2018-03-17] MEDS: Sodium Chloride 0.9% 10 ML Syringe FLUSH SCH ×2 (14:13→19:13)
[2018-03-17] MEDS: Ertapenem 1 GM Vial IVPUSH SCH (14:13)
[2018-03-17] MEDS: Tamsulosin 0.4 MG Cap.ER PO SCH (19:12)
[2018-03-18] MEDS: AMLODIPINE 2.5 MG PO SCH (08:04)
[2018-03-18] MEDS: Aspirin 81 MG Tab.Chew PO SCH ×2 (08:05→17:26)
[2018-03-18] MEDS: Gabapentin 100 MG Cap PO SCH ×3 (08:06→17:27)
[2018-03-18] MEDS: Folic Acid 1 MG Tab PO SCH (08:06)
[2018-03-18] MEDS: Multivitamin Tab PO SCH (08:07)
[2018-03-18] MEDS: Sertraline 50 MG Tab PO SCH (08:08)
[2018-03-18] MEDS: Cholecalciferol (Vitamin D3) 400 Unit Tab PO SCH (08:09)
[2018-03-18] MEDS: Cyanocobalamin (Vitamin B12) 250 MCG Tab PO SCH (08:10)
[2018-03-18] MEDS: Thiamine 100 MG Tab PO SCH (08:10)
[2018-03-18] MEDS: ZINC PO SCH (08:29)
[2018-03-18] MEDS: MAGNESIUM PO SCH (08:29)
[2018-03-18] MEDS: CALCIUM PO SCH (08:29)
[2018-03-18] MEDS: Lactulose Soln 10 GM/15 ML 30 ML UD Cup PO SCH ×3 (09:15→17:36)
[2018-03-18] MEDS: Ertapenem 1 GM Vial IVPUSH SCH (13:42)
[2018-03-18] MEDS: OXYCODONE 10 MG PO PRN ×2 (17:58→23:42)
[2018-03-18] MEDS: Sodium Chloride 0.9% 10 ML Syringe FLUSH SCH (19:23)
[2018-03-18] MEDS: Tamsulosin 0.4 MG Cap.ER PO SCH (19:23)
[2018-03-18] MEDS: Diazepam 5 MG Tab PO PRN (23:42)
[2018-03-19] MEDS: AMLODIPINE 2.5 MG PO SCH (08:15)
[2018-03-19] MEDS: CALCIUM PO SCH (08:16)
[2018-03-19] MEDS: ZINC PO SCH (08:16)
[2018-03-19] MEDS: MAGNESIUM PO SCH (08:16)
[2018-03-19] MEDS: Aspirin 81 MG Tab.Chew PO SCH ×2 (08:16→17:35)
[2018-03-19] MEDS: Lactulose Soln 10 GM/15 ML 30 ML UD Cup PO SCH ×3 (08:17→19:23)
[2018-03-19] MEDS: Folic Acid 1 MG Tab PO SCH (08:18)
[2018-03-19] MEDS: Multivitamin Tab PO SCH (08:18)
[2018-03-19] MEDS: Gabapentin 100 MG Cap PO SCH ×3 (08:18→17:36)
[2018-03-19] MEDS: Thiamine 100 MG Tab PO SCH (08:19)
[2018-03-19] MEDS: Cyanocobalamin (Vitamin B12) 250 MCG Tab PO SCH (08:20)
[2018-03-19] MEDS: Cholecalciferol (Vitamin D3) 400 Unit Tab PO SCH (08:20)
[2018-03-19] MEDS: Sertraline 50 MG Tab PO SCH (08:21)
[2018-03-19] MEDS: Diazepam 5 MG Tab PO PRN ×2 (11:57→19:24)
[2018-03-19] MEDS: OXYCODONE 10 MG PO PRN ×2 (11:58→19:24)
[2018-03-19] MEDS: Ertapenem 1 GM Vial IVPUSH SCH (14:04)
[2018-03-19] MEDS: Sodium Chloride 0.9% 10 ML Syringe FLUSH SCH ×2 (14:05→19:23)
[2018-03-19] MEDS: Tamsulosin 0.4 MG Cap.ER PO SCH (19:23)
[2018-03-20 07:36] LABS: CHLORIDE,CL 107 mmol/L (98-107); SODIUM,NA 140 mmol/L (136-145)
[2018-03-20] MEDS: Aspirin 81 MG Tab.Chew PO SCH (08:20)
[2018-03-20] MEDS: Lactulose Soln 10 GM/15 ML 30 ML UD Cup PO SCH ×3 (08:20→11:37)
[2018-03-20] MEDS: ZINC PO SCH (08:20)
[2018-03-20] MEDS: AMLODIPINE 2.5 MG PO SCH (08:20)
[2018-03-20] MEDS: CALCIUM PO SCH (08:20)
[2018-03-20] MEDS: MAGNESIUM PO SCH (08:20)
[2018-03-20] MEDS: Multivitamin Tab PO SCH (08:21)
[2018-03-20] MEDS: Folic Acid 1 MG Tab PO SCH (08:21)
[2018-03-20] MEDS: Gabapentin 100 MG Cap PO SCH ×2 (08:21→11:37)
[2018-03-20] MEDS: Thiamine 100 MG Tab PO SCH (08:21)
[2018-03-20] MEDS: Cyanocobalamin (Vitamin B12) 250 MCG Tab PO SCH (08:22)
[2018-03-20] MEDS: Sertraline 50 MG Tab PO SCH (08:22)
[2018-03-20] MEDS: Cholecalciferol (Vitamin D3) 400 Unit Tab PO SCH (08:22)
[2018-03-20] MEDS: OXYCODONE 10 MG PO PRN ×2 (08:23→14:08)
[2018-03-20] MEDS: Diazepam 5 MG Tab PO PRN ×2 (08:23→14:23)
--- NOTE | 2018-03-20 09:31 | PCM.PN ---
- General Info Date of Service: 03/20/18 Admission Dx/Problem (Free Text): Osteomyelitis Functional Status: Reports: Pain Controlled, Tolerating Diet, Ambulating (with walker) - Review of Systems General: Reports: Other (anxious to go home!) HEENT: Reports: No Symptoms Pulmonary: Reports: No Symptoms Cardiovascular: Reports: No Symptoms Gastrointestinal: Reports: No Symptoms Genitourinary: Reports: No Symptoms Musculoskeletal: Reports: No Symptoms Skin: Reports: No Symptoms Neurological: Reports: No Symptoms Psychiatric: Reports: No Symptoms - Patient Data Vitals - Most Recent: Last Vital Signs Temp 97.5 F 03/17/18 08:00 Pulse 74 03/17/18 08:00 Resp 20 03/17/18 08:00 BP 120/83 03/17/18 08:00 Pulse Ox 94 L 03/17/18 08:00 Weight - Most Recent: 153 lb Lab Results Last 24 Hours: Laboratory Results - last 24 hr 03/20/18 03/20/18 03/20/18 Range/Units 07:10 07:10 07:10 WBC 3.9 L (4.0-10.2) K/uL RBC 3.88 L (4.33-5.41) M/uL Hgb 12.1 L (13.1-16.8) g/dL Hct 35.6 L (39.0-49.0) % MCV 91.8 (84.0-98.0) fL MCH 31.2 (28.2-33.3) pg MCHC 34.0 (31.7-36.0) g/dL RDW 14.1 (11.2-14.1) % Plt Count 173 (150-350) K/uL Neut % (Auto) 41.9 L (45.0-80.0) % Lymph % (Auto) 40.7 (10.0-50.0) % Thomas % (Auto) 11.9 (2.0-14.0) % Eos % (Auto) 5.2 H (0.0-5.0) % Baso % (Auto) 0.3 (0.0-2.0) % Neut # (Auto) 1.63 (1.40-7.00) K/uL Lymph # (Auto) 1.58 (0.50-3.50) K/uL Thomas # (Auto) 0.46 (0.00-1.00) K/uL Eos # (Auto) 0.20 (0.00-0.50) K/uL Baso # (Auto) 0.01 (0.00-0.20) K/uL Sodium 140 (136-145) mmol/L Potassium 3.9 (3.5-5.1) mmol/L Chloride 107 (98-107) mmol/L Carbon Dioxide 26.8 (21.0-32.0) mmol/L BUN 15 (7-18) mg/dL Creatinine 0.54 (0.51-1.17) mg/dL Est Cr Clr Drug Dosing 118.50 mL/min Estimated GFR (MDRD) > 60 mL/min Glucose 91 (74-106) mg/dL Calcium 9.0 (8.5-10.1) mg/dL Total Bilirubin 0.7 (0.2-1.0) mg/dL AST 81 H (15-37) U/L ALT 32 (12-78) U/L Alkaline Phosphatase 146 H (46-116) IU/L Ammonia 32 (11-32) umol/L C-Reactive Protein < 0.1 (<=0.9) mg/dL Total Protein 6.9 (6.4-8.2) g/dL Albumin 2.8 L (3.4-5.0) g/dL Med Orders - Current: Current Medications Albuterol (Ventolin Hfa) 0 gm INH Q4HR PRN PRN Reason: SHORTNESS OF BREATH Aspirin (Aspirin) 81 mg PO BID [facility] Last Admin: 03/20/18 08:20 Dose: 81 mg Cholecalciferol (Vitamin D3) 400 units PO DAILY [facility] Last Admin: 03/20/18 08:22 Dose: 400 units Cyanocobalamin (Vitamin B12) 250 mcg PO DAILY [facility] Last Admin: 03/20/18 08:22 Dose: 250 mcg Diazepam (Valium.) 5 mg PO Q6H PRN PRN Reason: MUSCLE SPASMS/ANXIETY Last Admin: 03/20/18 08:23 Dose: 5 mg Ertapenem (Invanz) 1 gm IVPUSH DAILY@1400 [facility] Last Admin: 03/19/18 14:04 Dose: 1 gm Folic Acid (Folic Acid) 1 mg PO DAILY [facility] Last Admin: 03/20/18 08:21 Dose: 1 mg Gabapentin (Neurontin) 200 mg PO TID [facility] Last Admin: 03/20/18 08:21 Dose: 200 mg Heparin Sodium (Porcine) (Heparin Lock Flush 100 Units/Ml) 300 units FLUSH ASDIRECTED PRN PRN Reason: KEEP LINE OPEN Last Admin: 03/14/18 11:59 Dose: 300 units Heparin Sodium (Porcine) (Heparin Lock Flush 100 Units/Ml) 300 units FLUSH ASDIRECTED [facility] Last Admin: 03/18/18 15:30 Dose: 300 units Ketoconazole (Nizoral 2% Crm) 0 gm TOP BID PRN PRN Reason: SEBORRHEA ON FACE Lactulose (Cephulac) 20 gm PO TID [facility] Last Admin: 03/20/18 08:24 Dose: Not Given Multivitamins/Minerals/Vitamin C (Tab-A-Alondra) 1 tab PO DAILY [facility] Last Admin: 03/20/18 08:21 Dose: 1 tab Amlodipine [Norvasc] (2.5 Mg Tabs) 2.5 mg PO DAILY [facility] Last Admin: 03/20/18 08:20 Dose: 2.5 mg Oxycodone 10mg (Tablets) 1 each PO Q4H PRN PRN Reason: Pain Last Admin: 03/20/18 08:23 Dose: 1 each Rifampin 300 Mg (Capsules) 300 mg PO BID [facility] Last Admin: 03/20/18 08:21 Dose: 300 mg Calcium/Magnesium/ (Zinc Tab Own Med) 0 tab PO DAILY [facility] Last Admin: 03/20/18 08:20 Dose: 1 tab Senna/Docusate Sodium (Senna Plus) 2 tab PO BID PRN PRN Reason: Constipation Sertraline HCl (Zoloft) 50 mg PO DAILY [facility] Last Admin: 03/20/18 08:22 Dose: 50 mg Sodium Chloride (Saline Flush) 10 ml FLUSH ASDIRECTED PRN PRN Reason: KEEP LINE OPEN Last Admin: 03/14/18 11:59 Dose: 10 ml Sodium Chloride (Saline Flush) 10 ml FLUSH ASDIRECTED [facility] Last Admin: 03/19/18 19:23 Dose: 10 ml Sodium Chloride (Saline Flush) 10 ml FLUSH ASDIRECTED PRN PRN Reason: Keep Vein Open Tamsulosin HCl (Flomax) 0.4 mg PO BEDTIME [facility] Last Admin: 03/19/18 19:23 Dose: 0.4 mg Thiamine HCl (Vitamin B-1) 100 mg PO DAILY [facility] Last Admin: 03/20/18 08:21 Dose: 100 mg Discontinued Medications Calcium/Magnesium/ (Zinc Tab Own Med) 0 tab PO DAILY [facility] Last Admin: 03/14/18 08:52 Dose: Not Given Senna/Docusate Sodium (Senna Plus) 2 tab PO BID [facility] Last Admin: 03/01/18 08:40 Dose: 2 tab - Exam General: Alert, Oriented HEENT: Pupils Reactive, Mucous Membr. Moist/[place] Neck: Supple, Trachea Midline Lungs: Clear to Auscultation Cardiovascular: Regular Rate, Regular Rhythm GI/Abdominal Exam: Normal Bowel Sounds, Soft, Non-Tender (Male) Exam: Deferred Back Exam: Normal Inspection Extremities: No Pedal Edema Skin: Warm, Dry, Intact Wound/Incisions: Healing Well (R hip incision dry, healing very well) Neurological: No New Focal Deficit Psy/Mental Status: Alert, Normal Affect, Normal Mood - Problem List & Annotations (1) Osteomyelitis hip SNOMED Code(s): 5111954 Code(s): M86.9 - OSTEOMYELITIS, UNSPECIFIED Status: Acute Priority: High Current Visit: Yes (2) History of arthroplasty of right hip SNOMED Code(s): 232163049 Code(s): Z96.641 - PRESENCE OF RIGHT ARTIFICIAL HIP JOINT Status: Chronic Priority: Medium Current Visit: Yes (3) Hypertension SNOMED Code(s): 67567485 Code(s): I10 - ESSENTIAL (PRIMARY) HYPERTENSION Status: Chronic Priority : Medium Current Visit: Yes Qualifiers: Hypertension type: essential hypertension Qualified Code(s): I10 - Essential (primary) hypertension (4) Hepatitis C, chronic SNOMED Code(s): 825585899 Code(s): B18.2 - CHRONIC VIRAL HEPATITIS C Status: Chronic Priority: Medium Current Visit: Yes Qualifiers: Hepatic coma status: without hepatic coma Qualified Code(s): B18.2 - Chronic viral hepatitis C (5) Depression SNOMED Code(s): 00699815 Code(s): F32.9 - MAJOR DEPRESSIVE DISORDER, SINGLE EPISODE, UNSPECIFIED Status: Chronic Priority: Medium Current Visit: Yes Qualifiers: Depression Type: major depressive disorder Major depression recurrence: recurrent Major depression episode severity: moderate (6) BPH (benign prostatic hyperplasia) SNOMED Code(s): 986291802 Code(s): N40.0 - BENIGN PROSTATIC HYPERPLASIA WITHOUT LOWER URINRY TRACT SYMP Status: Chronic Priority: Medium Current Visit: Yes Qualifiers: Lower urinary tract symptom presence: symptoms absent Qualified Code(s): N40.0 - Benign prostatic hyperplasia without lower urinary tract symptoms (7) Drug induced constipation SNOMED Code(s): 78655246 Code(s): K59.03 - DRUG INDUCED CONSTIPATION Status: Chronic Priority: Medium Current Visit: Yes Annotation/Comment:: Secondary to narcotics - Problem List Review Problem List Initiated/Reviewed/Updated: Yes - Plan Plan:: 03-15-18 Rusty Gandara PA-C Patient has been receiving IV Invanz daily for Osteomyelitis R hip. He has worked with PT-OT. He has improved and is ambulating outside with a walker, and very much desires to return home. Both he and his have administered IV medication at home previously, and do feel comfortable doing this again. After examination and discussion, will discharge to home March 20 to continue once-daily IV infusions of Invanz through April 05. Will draw one more set of labs that morning. Will have Home Health involvement. Did discuss with Evelyn Redding as well, she says we already have the entire supply of antibiotic medicine here to send home with patient. 03-20-18 Rusty Gandara PA-C Patient and his have been administering the Invanz per PICC line under the nurse's monitoring and have done well. Patient says he is anxious to get home today, will see ID again on the of this month to see if he can receive a new R hip revision. Labs reviewed. Will be discharged home on current meds, after 1400 dose of Invanz.
--- NOTE | 2018-03-20 10:04 | PCM.DCSUM1 ---
Discharge Summary - Hospital Course Brief History: Had been admitted here to [facility] status for long-term antibiotic therapy per PICC line, and PT-OT evaluation and treatment after a R hip replacement with complications including Osteomyelitis. - Discharge Data Discharge Date: 03/20/18 Discharge Disposition: Home, W Home Health Agency 06 Condition: Fair - Discharge Diagnosis/Problem(s) (1) Osteomyelitis hip SNOMED Code(s): 0814457 ICD Code: M86.9 - OSTEOMYELITIS, UNSPECIFIED Status: Acute Priority: High Current Visit: Yes (2) History of arthroplasty of right hip SNOMED Code(s): 899784117 ICD Code: Z96.641 - PRESENCE OF RIGHT ARTIFICIAL HIP JOINT Status: Chronic Priority: Medium Current Visit: Yes (3) Hypertension SNOMED Code(s): 85129220 ICD Code: I10 - ESSENTIAL (PRIMARY) HYPERTENSION Status: Chronic Priority : Medium Current Visit: Yes Qualifiers: Hypertension type: essential hypertension Qualified Code(s): I10 - Essential (primary) hypertension (4) Hepatitis C, chronic SNOMED Code(s): 924896020 ICD Code: B18.2 - CHRONIC VIRAL HEPATITIS C Status: Chronic Priority: Medium Current Visit: Yes Qualifiers: Hepatic coma status: without hepatic coma Qualified Code(s): B18.2 - Chronic viral hepatitis C (5) Depression SNOMED Code(s): 71276656 ICD Code: F32.9 - MAJOR DEPRESSIVE DISORDER, SINGLE EPISODE, UNSPECIFIED Status: Chronic Priority: Medium Current Visit: Yes Qualifiers: Depression Type: major depressive disorder Major depression recurrence: recurrent Major depression episode severity: moderate (6) BPH (benign prostatic hyperplasia) SNOMED Code(s): 269357412 ICD Code: N40.0 - BENIGN PROSTATIC HYPERPLASIA WITHOUT LOWER URINRY TRACT SYMP Status: Chronic Priority: Medium Current Visit: Yes Qualifiers: Lower urinary tract symptom presence: symptoms absent Qualified Code(s): N40.0 - Benign prostatic hyperplasia without lower urinary tract symptoms (7) Drug induced constipation SNOMED Code(s): 23049864 ICD Code: K59.03 - DRUG INDUCED CONSTIPATION Status: Chronic Priority: Medium Current Visit: Yes Problem Details: Secondary to narcotics - Patient Summary/Data Consults: Consultations 02/24/18 16:31 Consult to Case Management [CONS] Routine OT Evaluation and Treatment [CONS] Routine PT Evaluation and Treatment [CONS] Routine - Patient Instructions Diet: Usual Diet as Tolerated Activity: As Tolerated (use your walker) Driving: Do Not Drive Showering/Bathing: May Shower Other/Special Instructions: Follow up with Orthopedic Surgeon Dr. Celso Lucero April 13 at 11:45am at [facility] [phone]. Follow up with Infectious Disease Dr. Alva Brower April 24 at 10:40am at [facility] [phone]. Follow up with your regular primary care provider for any needed refills of pain medicines. - Discharge Plan Home Medications: Home Meds Albuterol [Ventolin HFA] 2 inhalation PO Q4HR PRN 02/24/18 [History] Aspirin 81 mg PO BID 02/24/18 [History] Calcium Carb/Mag Ox/Zinc Gluc [Krpeyat-Oiazvvbej-Ddtt] 1 tab PO DAILY 02/24/18 [ History] Cholecalciferol (Vitamin D3) [Vitamin D3] 1 tab PO DAILY 02/24/18 [History] Cyanocobalamin (Vitamin B-12) [Vitamin B-12] 1 tab PO DAILY 02/24/18 [History] Diazepam [Valium] 5 mg PO Q6H PRN 02/24/18 [History] Folic Acid 1 mg PO DAILY 02/24/18 [History] Gabapentin [Neurontin] 200 mg PO TID 02/24/18 [History] Ketoconazole [Nizoral 2% Crm] 1 applic TOP BID PRN 02/24/18 [History] Lactulose [Cephulac] 30 ml PO TID 02/24/18 [History] Multivitamin [Multi-Vitamin Daily] 1 tab PO DAILY 02/24/18 [History] Rifampin 300 mg PO BID 02/24/18 [History] Sennosides/Docusate Sodium [Senna-S] 2 tab PO BID 02/24/18 [History] Sertraline [Zoloft] 1 tab PO DAILY 02/24/18 [History] Tamsulosin [Flomax] 1 cap PO BEDTIME 02/24/18 [History] Thiamine [Vitamin B-1] 1 tab PO DAILY 02/24/18 [History] Triamcinolone Acetonide [Triamcinolone Acetonide 0.1% Crm] 1 applic TOP [id number] 02/24/18 [History] Vit A & D3 In Cod Liver Oil [Cod Liver Oil Softgel] 1 cap PO DAILY 02/24/18 [ History] amLODIPine [Norvasc] 2.5 mg PO DAILY 02/24/18 [History] oxyCODONE 10 mg PO Q4HR PRN 02/24/18 [History] Ertapenem [INVanz] 1 gm IVPUSH DAILY 16 Days #0 03/20/18 [Rx] Heparin Sodium,Porcine/PF [Heparin Lock Flush 100 Unit/ml] 3 ml FLUSH ASDIRECTED #16 03/20/18 [Rx] Sodium Chloride 0.9% [Saline Flush] 10 ml FLUSH ASDIRECTED #32 03/20/18 [Rx] - Discharge Summary/Plan Comment DC Time >30 min.: Yes Discharge Summary/Plan Comment: Patient is being discharged to home with his and Home Health. He and his have been trained in administering the Invanz per PICC line. He has follow -up appointments scheduled with Orthopedic Surgeon Dr Celso Lucero and ID Dr. Alva Brower. We are sending the Invanz home with him for the next 16 days , and all needed supplies, sodium chloride and heparin flushes were ordered from [employer] last Tuesday. We will send the remaining Diazepam and Oxycodone supply that is his, and he will follow up with his regular primary care provider for any needed refills of these meds. - Patient Data Vitals - Most Recent: Last Vital Signs Temp 97.5 F 03/17/18 08:00 Pulse 74 03/17/18 08:00 Resp 20 03/17/18 08:00 BP 120/83 03/17/18 08:00 Pulse Ox 94 L 03/17/18 08:00 Weight - Most Recent: 153 lb Lab Results - Last 24 hrs: Laboratory Results - last 24 hr 03/20/18 03/20/18 03/20/18 Range/Units 07:10 07:10 07:10 WBC 3.9 L (4.0-10.2) K/uL RBC 3.88 L (4.33-5.41) M/uL Hgb 12.1 L (13.1-16.8) g/dL Hct 35.6 L (39.0-49.0) % MCV 91.8 (84.0-98.0) fL MCH 31.2 (28.2-33.3) pg MCHC 34.0 (31.7-36.0) g/dL RDW 14.1 (11.2-14.1) % Plt Count 173 (150-350) K/uL Neut % (Auto) 41.9 L (45.0-80.0) % Lymph % (Auto) 40.7 (10.0-50.0) % Miner % (Auto) 11.9 (2.0-14.0) % Eos % (Auto) 5.2 H (0.0-5.0) % Baso % (Auto) 0.3 (0.0-2.0) % Neut # (Auto) 1.63 (1.40-7.00) K/uL Lymph # (Auto) 1.58 (0.50-3.50) K/uL Miner # (Auto) 0.46 (0.00-1.00) K/uL Eos # (Auto) 0.20 (0.00-0.50) K/uL Baso # (Auto) 0.01 (0.00-0.20) K/uL Sodium 140 (136-145) mmol/L Potassium 3.9 (3.5-5.1) mmol/L Chloride 107 (98-107) mmol/L Carbon Dioxide 26.8 (21.0-32.0) mmol/L BUN 15 (7-18) mg/dL Creatinine 0.54 (0.51-1.17) mg/dL Est Cr Clr Drug Dosing 118.50 mL/min Estimated GFR (MDRD) > 60 mL/min Glucose 91 (74-106) mg/dL Calcium 9.0 (8.5-10.1) mg/dL Total Bilirubin 0.7 (0.2-1.0) mg/dL AST 81 H (15-37) U/L ALT 32 (12-78) U/L Alkaline Phosphatase 146 H (46-116) IU/L Ammonia 32 (11-32) umol/L C-Reactive Protein < 0.1 (<=0.9) mg/dL Total Protein 6.9 (6.4-8.2) g/dL Albumin 2.8 L (3.4-5.0) g/dL Med Orders - Current: Current Medications Albuterol (Ventolin Hfa) 0 gm INH Q4HR PRN PRN Reason: SHORTNESS OF BREATH Aspirin (Aspirin) 81 mg PO BID [facility] Last Admin: 03/20/18 08:20 Dose: 81 mg Cholecalciferol (Vitamin D3) 400 units PO DAILY [facility] Last Admin: 03/20/18 08:22 Dose: 400 units Cyanocobalamin (Vitamin B12) 250 mcg PO DAILY [facility] Last Admin: 03/20/18 08:22 Dose: 250 mcg Diazepam (Valium.) 5 mg PO Q6H PRN PRN Reason: MUSCLE SPASMS/ANXIETY Last Admin: 03/20/18 08:23 Dose: 5 mg Ertapenem (Invanz) 1 gm IVPUSH DAILY@1400 [facility] Last Admin: 03/19/18 14:04 Dose: 1 gm Folic Acid (Folic Acid) 1 mg PO DAILY [facility] Last Admin: 03/20/18 08:21 Dose: 1 mg Gabapentin (Neurontin) 200 mg PO TID [facility] Last Admin: 03/20/18 08:21 Dose: 200 mg Heparin Sodium (Porcine) (Heparin Lock Flush 100 Units/Ml) 300 units FLUSH ASDIRECTED PRN PRN Reason: KEEP LINE OPEN Last Admin: 03/14/18 11:59 Dose: 300 units Heparin Sodium (Porcine) (Heparin Lock Flush 100 Units/Ml) 300 units FLUSH ASDIRECTED [facility] Last Admin: 03/18/18 15:30 Dose: 300 units Ketoconazole (Nizoral 2% Crm) 0 gm TOP BID PRN PRN Reason: SEBORRHEA ON FACE Lactulose (Cephulac) 20 gm PO TID [facility] Last Admin: 03/20/18 08:24 Dose: Not Given Multivitamins/Minerals/Vitamin C (Tab-A-Alondra) 1 tab PO DAILY [facility] Last Admin: 03/20/18 08:21 Dose: 1 tab Amlodipine [Norvasc] (2.5 Mg Tabs) 2.5 mg PO DAILY [facility] Last Admin: 03/20/18 08:20 Dose: 2.5 mg Oxycodone 10mg (Tablets) 1 each PO Q4H PRN PRN Reason: Pain Last Admin: 03/20/18 08:23 Dose: 1 each Rifampin 300 Mg (Capsules) 300 mg PO BID [facility] Last Admin: 03/20/18 08:21 Dose: 300 mg Calcium/Magnesium/ (Zinc Tab Own Med) 0 tab PO DAILY [facility] Last Admin: 03/20/18 08:20 Dose: 1 tab Senna/Docusate Sodium (Senna Plus) 2 tab PO BID PRN PRN Reason: Constipation Sertraline HCl (Zoloft) 50 mg PO DAILY [facility] Last Admin: 03/20/18 08:22 Dose: 50 mg Sodium Chloride (Saline Flush) 10 ml FLUSH ASDIRECTED PRN PRN Reason: KEEP LINE OPEN Last Admin: 03/14/18 11:59 Dose: 10 ml Sodium Chloride (Saline Flush) 10 ml FLUSH ASDIRECTED [facility] Last Admin: 03/19/18 19:23 Dose: 10 ml Sodium Chloride (Saline Flush) 10 ml FLUSH ASDIRECTED PRN PRN Reason: Keep Vein Open Tamsulosin HCl (Flomax) 0.4 mg PO BEDTIME [facility] Last Admin: 03/19/18 19:23 Dose: 0.4 mg Thiamine HCl (Vitamin B-1) 100 mg PO DAILY [facility] Last Admin: 03/20/18 08:21 Dose: 100 mg Discontinued Medications Calcium/Magnesium/ (Zinc Tab Own Med) 0 tab PO DAILY [facility] Last Admin: 03/14/18 08:52 Dose: Not Given Senna/Docusate Sodium (Senna Plus) 2 tab PO BID [facility] Last Admin: 03/01/18 08:40 Dose: 2 tab
[2018-03-20] MEDS: Sodium Chloride 0.9% 10 ML Syringe FLUSH SCH ×2 (14:08→14:09)
[2018-03-20] MEDS: Ertapenem 1 GM Vial IVPUSH SCH (14:09)
== END 2018-03-20 14:35 | disposition home health service (06) | DRG 541 ==
LOC: LL.SWG 14:14
PROVIDERS: ADMIT Family Medicine; ATTEND Family Medicine
DX: M86.9 Osteomyelitis, unspecified (principal); I10 Essential (primary) hypertension; Z88.8 Allergy status to other drugs, medicaments and biological substances; K59.03 Drug induced constipation; T40.605A Adverse effect of unspecified narcotics, initial encounter; B18.2 Chronic viral hepatitis C; F32.9 Major depressive disorder, single episode, unspecified; N40.0 Benign prostatic hyperplasia without lower urinary tract symptoms; Z79.899 Other long term (current) drug therapy; Z79.82 Long term (current) use of aspirin; Z79.01 Long term (current) use of anticoagulants; Z87.891 Personal history of nicotine dependence; Z96.641 Presence of right artificial hip joint
CPT/HCPCS: 36415; 80053; 80076; 82140; 82565; 84450; 85025; 86140; 87493; 97110-GP; 97161-GP; 97530-GP; A9270-GY; J1335; J1642; J7050